=== PATIENT | male | born 1965 | race African-American/Black ===

== ENCOUNTER 2020-03-27 19:18 | Emergency (ER) | payer BC, OTHER ==
--- OUTSIDE RECORDS SUMMARY | 2020-03-27 19:21 | XMS REPORT | Summary of Care ---
:1965 Author Organization [facility] - [facility] Address [address] [place] [address] Care Team Providers Name Role Phone Torres Peres MD Primary Care Provider Reason for Visit Reason Comments Rx Concern/Question Encounter Details Date Type Department Care Team Description 03/06/2020 Telephone [facility] Systems Integration Family Corona Peres Rx Conc john/Question Medicine - Sebastián Macdonald MD [address] [place] [address] [place] [address] [place], [place] [phone] Allergies No Known Allergiesdocumented as of this encounter (statuses as of 03/06/2020) Medications Medication Sig Dispensed Refills Start Date End Date Status aspirin 81 mg chewable Take 81 mg by 0 Active tablet mouth daily. topiramate 100 mg Take 1 tablet 180 tablet 4 12/02/2019 Active tabletIndications: by mouth 2 Migraine without aura and (two) times without status daily. migrainosus, not intractable atorvastatin 40 mg Take 1 tablet 90 tablet 4 03/02/2020 Active tabletIndications: by mouth at Hypercholesterolemia bedtime. ALPRAZolam (XANAX) 1 mg Take 1 tablet 30 tablet 0 03/02/2020 Active tabletIndications: Anxiety by mouth 2 (two) times daily as needed (anxiety). tamsulosin (FLOMAX) 0.4 mg Take 1 180 capsule 4 03/02/2020 Active 24 hr capsuleIndications: capsule by Benign prostatic mouth 2 (two) hyperplasia with weak times daily. urinary stream documented as of this encounter (statuses as of 03/06/2020) Active Problems Not on filedocumented as of this encounter (statuses as of 03/06/2020) Social History Tobacco Use Types Packs/Day Years Used Date Current Every Day Smoker Cigarettes 1 Smokeless Tobacco: Never Used Alcohol Use Drinks/Week oz/Week Comments Not Currently Sex Assigned at Date Recorded Not on file Job Start Date Occupation Industry Not on file Not on file Not on file Travel History Travel Start Travel End No recent travel history available. documented as of this encounter Last Filed Vital Signs Not on filedocumented in this encounter Plan of Treatment Health Maintenance Due Date Last Done Comments HEPATITIS C (HCV) SCREEN 1965 PNEUMOCOCCAL 0-64 YEARS COMBINED SERIES (1 of - 1970 PPSV23) DTaP,Tdap,and Td Vaccines (1 - Tdap) 1975 COLONOSCOPY 2014 Zoster Recombinant Vaccine (SHINGRIX) (1 of 2) 2014 INFLUENZA VACCINE (#1) 2019 LUNG CANCER SCREEN: Recommended for age 55-80 with 30 + 09/06/20 19 pack year history documented as of this encounter Results Not on filedocumented in this encounter Insurance Payer Benefit Plan / Subscriber ID Effective Dates Phone Addre ss Type Group [employer] OF [employer] [id number] 2019-Kaden [phone] [address] [facility] 7 [id number] [place] [address] documented as of this encounter
--- OUTSIDE RECORDS SUMMARY | 2020-03-27 19:21 | XMS REPORT | Summary of Care ---
:1965 Author Organization [facility] - [facility] Address [address] [place] [address] Care Team Providers Name Role Phone Torres Peres MD Primary Care Provider Reason for Visit Reason Comments Rx Concern/Question Encounter Details Date Type Department Care Team Description 03/05/2020 Telephone [facility] Foody Family Corona Peres Rx Conc john/Question Medicine - Sebastián Macdonald MD [address] [place] [address] [place] [address] [place], [place] [phone] Allergies No Known Allergiesdocumented as of this [...] ss Type Group [employer] [id number] 2019-Kaden [phone] [address] [facility] [id number] [place] [address] documented as of this encounter
--- OUTSIDE RECORDS SUMMARY | 2020-03-27 19:21 | XMS REPORT | Summary of Care ---
:1965 Author Organization [facility] - [facility] Address [address] [place] [address] Care Team Providers Name Role Phone Torres Peres MD Primary Care Provider Reason for Visit Reason Comments Refill Request Anxiety Encounter Details Date Type Department Care Team Description 03/02/2020 Telemedicine Visit [facility] Corona Peres Anxiety (Primary Dx); Pediatric and Adult MD Torres Hypercholesterolemia; Primary Care- [address] Benign prostatic hyperplasia with weak u rinary stream [place], [place] [address] [phone] , [address] [place], [place] [phone] [address] (Fax) [phone] Allergies No Known Allergiesdocumented as of this encounter (statuses as of 03/02/2020) Medications Medication Sig Dispensed Refills Start End Status Date Date aspirin 81 mg chewable Take 81 mg 0 Active tablet by mouth daily. topiramate 100 mg Take 1 180 tablet 4 12/02/19 A ctive tabletIndications: tablet by 20 Migraine without aura mouth 2 and without status (two) times migrainosus, not daily. intractable atorvastatin 40 mg Take 1 90 tablet 4 03/02/20 A ctive tabletIndications: tablet by 20 Hypercholesterolemia mouth at bedtime. ALPRAZolam (XANAX) 1 mg Take 1 30 tablet 0 03/02/20 Active tabletIndications: tablet by 20 Anxiety mouth 2 (two) times daily as needed (anxiety). tamsulosin (FLOMAX) 0.4 Take 1 180 capsule 4 03/02/20 Active mg 24 hr capsule by 20 capsuleIndications: mouth 2 Benign prostatic (two) times hyperplasia with weak daily. urinary stream HYDROcodone-acetaminophe Take 1 Tab 0 /0 3/2 Discontinued n (NORCO) 10-325 mg by mouth 020 tablet every 6 (six) hours as needed. ALPRAZolam (XANAX) 1 mg Take 1 mg 0 Discontinued tablet by mouth 3 020 (three) times daily. carisoprodol (SOMA) 350 Take 350 mg 0 04/0 3/2 Discontinued mg tablet by mouth 3 020 (three) times daily. tamsulosin (FLOMAX) 0.4 Take 1 90 capsule 4 12/02/1903/02 Discontinued mg 24 hr capsule by 20 020 (Reorder) capsuleIndications: mouth Benign prostatic daily. hyperplasia with weak urinary stream atorvastatin 40 mg Take 1 90 tablet 4 12/02/19 D iscontinued tabletIndications: tablet by 20 020 ( Reorder) Hypercholesterolemia mouth at bedtime. ibuprofen 800 mg Take 1 270 tablet 4 12/02/19 Di scontinued tabletIndications: Low tablet by 20 020 back pain of over 3 mouth 3 months duration (three) times daily with meals. tamsulosin (FLOMAX) 0.4 Take 1 90 capsule 4 03/02/2003/02 Discontinued mg 24 hr capsule by 20 020 (Reorder) capsuleIndications: mouth Benign prostatic daily. hyperplasia with weak urinary stream documented as of this encounter (statuses as of 03/02/2020) Active Problems Not on filedocumented as of this encounter (statuses as of 03/02/2020) Social History Tobacco Use Types Packs/Day Years [...] Signs Not on filedocumented in this encounter Progress Notes Corona Peres MD - 03/02/2020 2:00 PM CDT TELEHEALTH NOTE Verbal consent obtained from Patient: Benigno Crespo for telehealth services provided below. Communication with patient was conducted via Telephone. Location of Patient: Workplace Location of Provider: Office Date of Service: 03/02/2020 Chief Complaint: refills HPI: BPH: patient is unable to urinate well. Difficult to initiate and poor stream, did better on BID tamsulosin. Anxiety Presents for follow-up visit. Symptoms include excessive worry, insomnia and nervous/anxious behavior. Symptoms occur constantly. Compliance with medications: patient did not see pain management and is not taking pain meds or muscle relaxers; he is very anxoius and not sleeping. Past Medical History: Diagnosis Date BPH with urinary obstruction CAD (coronary artery disease) Hyperlipidemia Hypertension Migraine No Known Allergies Family History Problem Relation Age of Onset No Significant Medical Problems Mother MEDICATIONS: Current Outpatient Medications Medication Sig Dispense Refill aspirin 81 mg chewable tablet Take 81 mg by mouth daily. atorvastatin 40 mg tablet Take 1 tablet by mouth at bedtime. 90 tablet 4 carisoprodol (SOMA) 350 mg tablet Take 350 mg by mouth 3 (three) times daily. ibuprofen 800 mg tablet Take 1 tablet by mouth 3 (three) times daily with meals. 270 tablet 4 tamsulosin (FLOMAX) 0.4 mg 24 hr capsule Take 1 capsule by mouth daily. 90 capsule 4 topiramate 100 mg tablet Take 1 tablet by mouth 2 (two) times daily. 180 tablet 4 ALPRAZolam (XANAX) 1 mg tablet Take 1 mg by mouth 3 (three) times daily. HYDROcodone-acetaminophen (NORCO) 10-325 mg tablet Take 1 Tab by mouth every 6 (six) hours as needed. No current facility-administered medications for this visit. ROS Review of Systems Psychiatric/Behavioral: The patient is nervous/anxious and has insomnia. TELEHEALTH EXAM Patient is alert and communicative on the phone with no distress noted. ASSESSMENT/ PLAN 1. Anxiety ALPRAZolam (XANAX) 1 mg tablet 2. Hypercholesterolemia atorvastatin 40 mg tablet 3. Benign prostatic hyperplasia with weak urinary stream tamsulosin (FLOMAX) 0.4 mg 24 hr capsule Increase tamsulosin to bid After visit summary (AVS ) documentation will be available through [employer] for this encounter. A total of 15 minutes was spent on the Telephone with the patient. Corona Peres MD documented in this encounter Plan of Treatment Health Maintenance Due Date Last Done Comments HEPATITIS C (HCV) SCREEN 1965 PNEUMOCOCCAL 0-64 YEARS COMBINED SERIES (1 of 1 - 1970 PPSV23) DTaP,Tdap,and Td Vaccines (1 - Tdap) 1975 COLONOSCOPY 2014 Zoster Recombinant Vaccine (SHINGRIX) (1 of 2) 2014 INFLUENZA VACCINE (#1) 2019 LUNG CANCER SCREEN: Recommended for age 55-80 with 30 + 09/06/20 19 pack year history documented as of this encounter Results Not on filedocumented in this encounter Visit Diagnoses Diagnosis Anxiety - Primary Anxiety state, unspecified Hypercholesterolemia Pure hypercholesterolemia Benign prostatic hyperplasia with weak u rinary stream documented in this encounter Insurance Payer Benefit Plan / Subscriber ID Effective Dates Phone Addre ss Type Group [employer] [id number] 2019-Kaden [phone] [id number] [place] [address] [id number] [place] [address] documented as of this encounter
--- OUTSIDE RECORDS SUMMARY | 2020-03-27 19:21 | XMS REPORT | Summary of Care ---
:1965 Author Organization [facility] - [facility] Address [address] [place] [address] Care Team Providers Name Role Phone Torres Peres MD Primary Care Provider Reason for Referral (Routine) Status Reason Specialty Diagnoses / Referred By Referred To Procedures Contact Contact New Request Location Diagnoses Benign prostatic hyperplasia with weak urinary stream Corona Peres, Preference Procedures CONSULT/REFERRAL UROLOGY MD Torres [address] [facility] [address] [place] [address] Phone: Fax: Reason for Visit Reason Comments Referral/consult Encounter Details Date Type Department Care Team Description 01/17/2020 Telephone [facility] Family Corona Peres, Referral/consult Medicine - Sebastián AMIN [address] [place] [address] Nancie can [address] [place] [address] [place] [address] [place], [place] [phone] Allergies No Known Allergiesdocumented as of this encounter (statuses as of 01/18/2020) Medications Medication Sig Dispensed Refills Start Date End Date Status HYDROcodone-acetaminophen Take 1 Tab by 0 Active (NORCO) 10-325 mg tablet mouth every 6 (six) hours as needed. ALPRAZolam (XANAX) 1 mg Take 1 mg by 0 Active tablet mouth 3 (three) times daily. carisoprodol (SOMA) 350 mg Take 350 mg 0 Active tablet by mouth 3 (three) times daily. aspirin 81 mg chewable Take 81 mg by 0 Active tablet mouth daily. topiramate 100 mg Take 1 tablet 180 tablet 4 12/02/2019 Active tabletIndications: by mouth 2 Migraine without aura and (two) times without status daily. migrainosus, not intractable tamsulosin (FLOMAX) 0.4 mg Take 1 90 capsule 4 12/02/2019 Active 24 hr capsuleIndications: capsule by Benign prostatic mouth daily. hyperplasia with weak urinary stream atorvastatin 40 mg Take 1 tablet 90 tablet 4 12/02/2019 Active tabletIndications: by mouth at Hypercholesterolemia bedtime. ibuprofen 800 mg Take 1 tablet 270 tablet 4 12/02/2019 Active tabletIndications: Low by mouth 3 back pain of over 3 months (three) times duration daily with meals. documented as of this encounter (statuses as of 01/18/2020) Active Problems Not on filedocumented as of this encounter (statuses as of 01/18/2020) Social History Tobacco Use Types Packs/Day Years [...] filedocumented in this encounter Plan of Treatment Date Type Specialty Care Team Description 03/02/2020 Office Visit Family Medicine Corona Peres MD [address] [place] [address] [phone] Health Maintenance Due Date Last Done Comments [...] filedocumented in this encounter Visit Diagnoses Diagnosis Benign prostatic hyperplasia with weak u rinary stream - Primary documented in this encounter Insurance Payer Benefit Plan / Subscriber ID Effective Dates Phone Addre ss Type Group [employer] [id number] 2019-Kaden [phone] [address] [facility] [id number] [place] [address] documented as of this encounter
--- OUTSIDE RECORDS SUMMARY | 2020-03-27 19:21 | XMS REPORT | Summary of Care ---
:1965 Author Organization [facility] - [facility] Address [address] [place] [address] Care Team Providers Name Role Phone Torres Peres MD Primary Care Provider Reason for Visit Reason Comments Referral/consult Urology Encounter Details Date Type Department Care Team Description 01/23/2020 Telephone [facility] Family Corona Peres l/consult Medicine - Sebastián Macdonald MD (Urology ) [address] [place], [place] [address] [phone] Allergies No Known Allergiesdocumented as of this encounter (statuses as of 01/30/2020) Medications Medication Sig Dispensed Refills Start Date [...] as of this encounter (statuses as of 01/30/2020) Active Problems Not on filedocumented as of this encounter (statuses as of 01/30/2020) Social History Tobacco Use Types Packs/Day Years [...] Office Visit Family Medicine Corona Peres MD [address] [place] [address] [phone] Health Maintenance Due Date Last Done [...] ss Type Group [employer] [id number] 2019-Kaden [phone] [address] [facility] [address] [id number] [place] [address] documented as of this encounter
--- OUTSIDE RECORDS SUMMARY | 2020-03-27 19:21 | XMS REPORT ---
:[address] [facility] t Address [address] [place] [address] Dr. Granados [address] [place] [address] Care Team Providers Name Role Phone Unavailable Unavailable Unavailable Problems This patient has no known problems. Allergies, Adverse Reactions, Alerts This patient has no known allergies or adverse reactions. Medications This patient has no known medications.
[2020-03-27] MEDS ORDERED: MORPHINE 2 MG/ML SYR ONE (21:04)
[2020-03-27] MEDS ORDERED: NA CHLORIDE 0.9% 1,000 ML ONE (21:04)
[2020-03-27] MEDS ORDERED: ONDANSETRON 4 MG/2 ML VIAL ONE (21:04)
[2020-03-27 21:19] LABS: Basophils % 0.5 % (0-1.3); Hematocrit 41.8 % (39.6-49.0); Lymphocytes % 32.2 % (15.3-44.8); MPV 8.8 fL (7.6-11.3); RBC Red Blood Cell Count 4.43 M/uL (4.33-5.43)
--- NOTE | 2020-03-27 21:30 | EDPHYS ---
Physician Documentation [facility] Name: Benigno Crespo Age: 54 yrs Sex: Male : 1965 Arrival Date: 03/27/2020 Time: 19:21 Bed 19 Private MD: ED Physician Richard Bentley HPI: 03/27 20:43 This 54 yrs old Black Male presents to ER via Ambulatory with complaints of Rectal aileen Bleeding. 20:43 The patient presents to the emergency department with bleeding from the rectum/anus, aileen pain in the rectal area, that is moderate. Onset: The symptoms/episode began/occurred 2 day(s) ago. Context: the patient has no known special context relating to the rectal area complaint(s). Modifying factors: The symptoms are alleviated by remaining still, The symptoms are aggravated by bowel movement, movement, sitting position. Associate signs and symptoms: The patient has no apparent associated signs or symptoms. The patient has experienced similar episodes in the past, a few times. 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 - Social history:: Smoking status: Patient reports the use of cigarette tobacco products, smokes one-half pack cigarettes per day. ROS: 20:44 Constitutional: Negative for fever, chills, and weight loss, Eyes: Negative for injury, aileen pain, redness, and discharge, ENT: Negative for injury, pain, and discharge, Neck: Negative for injury, pain, and swelling, Cardiovascular: Negative for chest pain, palpitations, and edema, Respiratory: Negative for shortness of breath, cough, wheezing, and pleuritic chest pain, Back: Negative for injury and pain, : Negative for injury, bleeding, discharge, and swelling, MS/Extremity: Negative for injury and deformity, Skin: Negative for injury, rash, and discoloration, Neuro: Negative for headache, weakness, numbness, tingling, and seizure, Psych: Negative for depression, anxiety, suicide ideation, homicidal ideation, and hallucinations, Allergy/Immunology: Negative for hives, rash, and allergies, Endocrine: Negative for neck swelling, polydipsia, polyuria, polyphagia, and marked weight changes, Hematologic/Lymphatic: Negative for swollen nodes, abnormal bleeding, and unusual bruising. 20:44 Abdomen/GI: Positive for rectal pain, rectal bleeding, HEMORRHOIDS noted , extensive edema. Exam: 20:44 Constitutional: This is a well developed, well nourished patient who is awake, alert, aileen and in no acute distress. Head/Face: Normocephalic, atraumatic. Eyes: Pupils equal round and reactive to light, extra-ocular motions intact. Lids and lashes normal. Conjunctiva and sclera are non-icteric and not injected. Cornea within normal limits. Periorbital areas with no swelling, redness, or edema. ENT: Nares patent. No nasal discharge, no septal abnormalities noted. Tympanic membranes are normal and external auditory canals are clear. Oropharynx with no redness, swelling, or masses, exudates, or evidence of obstruction, uvula midline. Mucous membranes moist. Neck: Trachea midline, no thyromegaly or masses palpated, and no cervical lymphadenopathy. Supple, full range of motion without nuchal rigidity, or vertebral point tenderness. No Meningismus. Chest/axilla: Normal chest wall appearance and motion. Nontender with no deformity. No lesions are appreciated. Cardiovascular: Regular rate and rhythm with a normal S1 and S2. No gallops, murmurs, or rubs. Normal PMI, no JVD. No pulse deficits. Respiratory: Lungs have equal breath sounds bilaterally, clear to auscultation and percussion. No rales, rhonchi or wheezes noted. No increased work of breathing, no retractions or nasal flaring. Back: No spinal tenderness. No costovertebral tenderness. Full range of motion. Skin: Warm, dry with normal turgor. Normal color with no rashes, no lesions, and no evidence of cellulitis. MS/ Extremity: Pulses equal, no cyanosis. Neurovascular intact. Full, normal range of motion. Neuro: Awake and alert, GCS 15, oriented to person, place, time, and situation. Cranial nerves II-XII grossly intact. Motor strength 5/5 in all extremities. Sensory grossly intact. Cerebellar exam normal. Normal gait. Psych: Awake, alert, with orientation to person, place and time. Behavior, mood, and affect are within normal limits. 20:44 Abdomen/GI: Inspection: abdomen appears normal, Bowel sounds: normal, Palpation: nontender, Rectal exam: hemorrhoid(s), external, with associated bleeding, with inflammation, with pain, mass, is not appreciated, swelling, that is moderate, tenderness, that is moderate. Vital Signs: 19:41 BP 119 / 88; Pulse 109; Resp 18; Temp 99.2(O); Pulse Ox 99% on R/A; Weight 79.38 kg lp1 (R); Height 5 ft. 8 in. (172.72 cm); Pain 0/10; 20:50 BP 113 / 86; Pulse 67; Resp 18 S; Pulse Ox 100% on R/A; ca1 21:53 BP 101 / 68; Pulse 77; Resp 18 S; Pulse Ox 100% on R/A; ca1 19:41 Body Mass Index 26.61 (79.38 kg, 172.72 cm) lp1 MDM: 20:10 Patient medically screened. [facility] 20:46 Data reviewed: vital signs, nurses notes, lab test result(s), radiologic studies, plain aileen films. 20:46 Differential diagnosis: hemorrhoids, rectal prolapse possible. Data interpreted: [facility] satellite project site monitor: not applicable for this patient encounter. Test interpretation: by ED physician or midlevel provider: plain radiologic studies. 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 20:48 Physician consultation: Brayan Larose MD was called at 08:50, was contacted at 08:50, [facility] regarding consult, and will see patient in ED. 21:26 ED course: dr larose thoughts are partial mucisal prolapse.in ed to see. [facility] 21:35 Test interpretation: by ED physician or midlevel provider: labs, normal. Medication [facility] response: morphine partially relieved the patient's pain. ED course: pt explained process and follow up plan, will see dr larose in his office tomorrow. 03/27 20:43 Order name: CBC with Diff; Complete Time: 21:27 [facility] 03/27 20:43 Order name: Comprehensive Metabolic Panel [facility] 03/27 20:46 Order name: Abdomen 1 View (KUB) XRAY [facility] 03/27 20:43 Order name: Misc. Order: WARM SITZ BATH NOW; Complete Time: 21:39 aileen Administered Medications: 21:02 Drug: NS 0.9% 1000 ml Route: IV; Rate: 1 bolus; Site: right antecubital; ca1 21:52 Follow up: Response: No adverse reaction; IV Status: Completed infusion ca1 21:03 Drug: Zofran (Ondansetron) 4 mg Route: IVP; Site: right antecubital; ca1 21:52 Follow up: Response: No adverse reaction; Nausea is decreased ca1 21:07 Drug: morphine 2 mg {Note: RASS - 0.} Route: IVP; Site: right antecubital; ca1 21:52 Follow up: Response: No adverse reaction; Pain is decreased; RASS: Alert and Calm (0) ca1 21:40 Drug: Cipro 500 mg Route: PO; ca1 21:52 Follow up: Response: No adverse reaction ca1 21:41 Drug: Flagyl 500 mg Route: PO; ca1 21:52 Follow up: Response: No adverse reaction ca1 Disposition: 03/27/20 21:29 Discharged to Home. Impression: Rectal prolapse - partial mucosal. - Condition is Stable. - Discharge Instructions: Rectal Prolapse, Adult. - Prescriptions for Lidocaine Viscous - Apply to affected area 1 application by RECTAL route 3 times per day; 90 milliliter. Proctofoam HC 1- 1 % Rectal foam - apply 1 application by TOPICAL route 3 times per day; 30 Pack. Colace 100 mg Oral Tablet - take 1 tablet by ORAL route every 12 hours; 14 tablet. Flagyl 500 mg Oral Tablet - take 1 tablet by ORAL route every 8 hours for 7 days; 21 tablet. Cipro 500 mg Oral Tablet - take 1 tablet by ORAL route every 12 hours for 7 days; 14 tablet. - Medication Reconciliation Form, Thank You Letter, Antibiotic Education, Prescription Opioid Use, Work release form form. - Follow up: Brayan Larose MD; When: Tomorrow; Reason: Recheck today's complaints, Continuance of care, Re-evaluation by your physician. - Problem is new. - Symptoms have improved. Signatures: Dispatcher [employer] EDRichard William MD MD cha Pena, Laura RN RN lp1 Agueda Sandhu RN RN ca1 Corrections: (The following items were deleted from the chart) 21:58 21:29 03/27/2020 21:29 Discharged to Home. Impression: Rectal prolapse - partial ca1 mucosal. Condition is Stable. Forms are Medication Reconciliation Form, Thank You Letter, Antibiotic Education, Prescription Opioid Use. Follow up: Brayan Larose; When: Tomorrow; Reason: Recheck today's complaints, Continuance of care, Re-evaluation by your physician. Problem is new. Symptoms have improved. aileen
--- NOTE | 2020-03-27 21:30 | ER ---
Nurse's Notes [facility] Name: Benigno Crespo Age: 54 yrs Sex: Male : 1965 Arrival Date: 03/27/2020 Time: 19:21 Bed 19 Private MD: Diagnosis: Rectal prolapse-partial mucosal Presentation: 03/27 19:37 Chief complaint: Patient states: Rectal bleeding, dark in color that has been off and lp1 on all day today; States diarrhea today as well, has "really bad hemorrhoids"; unable to sit comfortably during triage. Coronavirus screen: Proceed with normal triage. Ebola Screen: No symptoms or risks identified at this time. Risk Assessment: Do you want to hurt yourself or someone else? Patient reports no desire to harm self or others. Onset of symptoms was March 27, 2020. 19:37 Method Of Arrival: Ambulatory lp1 19:37 Acuity: JD 3 lp1 20:15 Initial Sepsis Screen: Does the patient meet any 2 criteria? No. Patient's initial ca1 sepsis screen is negative. Does the patient have a suspected source of infection? No. Patient's initial sepsis screen is negative. 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 - Social history:: Smoking status: Patient reports the use of cigarette tobacco products, smokes one-half pack cigarettes per day. Screenin:15 Abuse screen: Denies threats or abuse. Denies injuries from another. Nutritional ca1 screening: No deficits noted. Tuberculosis screening: No symptoms or risk factors identified. Fall Risk IV access (20 points). Assessment: 20:15 General: Appears in no apparent distress. uncomfortable, Behavior is calm, cooperative, ca1 appropriate for age. Pain: Complains of pain in gluteal cleft Pain currently is 5 out of 10 on a pain scale. Pain began this afternoon Is continuous. Neuro: Level of Consciousness is awake, alert, obeys commands, Oriented to person, place, time, situation, Appropriate for age. Cardiovascular: Heart tones S1 S2 present Capillary refill < 3 seconds Patient's skin is warm and dry. Respiratory: Airway is patent Respiratory effort is even, unlabored, Respiratory pattern is regular, symmetrical, Breath sounds are clear bilaterally. GI: Abdomen is flat, non-distended, Bowel sounds present X 4 quads. Abd is soft and non tender X 4 quads. Reports diarrhea, bloody stool, hemorrhoids. : No signs and/or symptoms were reported regarding the genitourinary system. EENT: No signs and/or symptoms were reported regarding the EENT system. Derm: Skin is intact, is healthy with good turgor, Skin is pink, warm \\T\\ dry. Musculoskeletal: Circulation, motion, and sensation intact. Capillary refill < 3 seconds. 21:15 Reassessment: Dr. Alarcon at bedside. ca1 21:15 Reassessment: Patient appears in no apparent distress at this time. Patient and/or ca1 family updated on plan of care and expected duration. Pain level reassessed. Patient is alert, oriented x 3, equal unlabored respirations, skin warm/dry/pink. 21:53 Reassessment: Patient appears in no apparent distress at this time. Patient is alert, ca1 oriented x 3, equal unlabored respirations, skin warm/dry/pink. Vital Signs: 19:41 BP 119 / 88; Pulse 109; Resp 18; Temp 99.2(O); Pulse Ox 99% on R/A; Weight 79.38 kg lp1 (R); Height 5 ft. 8 in. (172.72 cm); Pain 0/10; 20:50 BP 113 / 86; Pulse 67; Resp 18 S; Pulse Ox 100% on R/A; ca1 21:53 BP 101 / 68; Pulse 77; Resp 18 S; Pulse Ox 100% on R/A; ca1 19:41 Body Mass Index 26.61 (79.38 kg, 172.72 cm) lp1 ED Course: 19:21 Patient arrived in ED. ds1 19:39 Triage completed. lp1 19:39 Arm band placed on left wrist. lp1 20:10 Agueda Sandhu RN is Primary Nurse. ca1 20:10 Richard Bentley MD is Attending Physician. aileen 20:15 Patient has correct armband on for positive identification. Placed in gown. Bed in low ca1 position. Call light in reach. Side rails up X2. Pulse ox on. NIBP on. Warm blanket given. 21:02 No provider procedures requiring assistance completed. Initial lab(s) drawn, by me, ca1 sent to lab. Inserted saline lock: 20 gauge in right antecubital area, using aseptic technique. Blood collected. 21:29 Brayan Alarcon MD is Referral Physician. [facility] 21:33 Abdomen 1 View (KUB) XRAY In Process Unspecified. EDMS 21:57 IV discontinued, intact, bleeding controlled, No redness/swelling at site. Pressure ca1 dressing applied. Administered Medications: 21:02 Drug: NS 0.9% 1000 ml Route: IV; Rate: 1 bolus; Site: right antecubital; ca1 21:52 Follow up: Response: No adverse reaction; IV Status: Completed infusion ca1 21:03 Drug: Zofran (Ondansetron) 4 mg Route: IVP; Site: right antecubital; ca1 21:52 Follow up: Response: No adverse reaction; Nausea is decreased ca1 21:07 Drug: morphine 2 mg {Note: RASS - 0.} Route: IVP; Site: right antecubital; ca1 21:52 Follow up: Response: No adverse reaction; Pain is decreased; RASS: Alert and Calm (0) ca1 21:40 Drug: Cipro 500 mg Route: PO; ca1 21:52 Follow up: Response: No adverse reaction ca1 21:41 Drug: Flagyl 500 mg Route: PO; ca1 21:52 Follow up: Response: No adverse reaction ca1 Outcome: 21:29 Discharge ordered by . [facility] 21:57 Discharged to home ambulatory. ca1 21:57 Condition: stable 21:57 Discharge instructions given to patient, Instructed on discharge instructions, follow up and referral plans. medication usage, Demonstrated understanding of instructions, follow-up care, medications, Prescriptions given X x5 21:58 Patient left the ED. ca1 Signatures: Dispatcher [employer] EDMS Richard Bentley MD MD cha Sanford, Demi ds1 Kayli Chacon, RN RN lp1 Agueda Sandhu RN RN ca1
[2020-03-27 21:31] LABS: Albumin 3.8 g/dL (3.4-5.0); Bilirubin Total 0.2 mg/dL (0.2-1.0); Potassium 3.5 mmol/L (3.5-5.1); Protein, Total 7.3 g/dL (6.4-8.2)
[2020-03-27] MEDS ORDERED: metroNIDAZOLE 500 MG TABLET ONE (21:48)
[2020-03-27] MEDS ORDERED: CIPROFLOXACIN HCL 500 MG TAB ONE (21:48)
--- NOTE | 2020-03-27 23:33 | CON ---
Date of Consultation: 03/27/2020 Brief History Of Present Illness: Patient is a 54-year-old black male who is a local [place] [employer] by [employer], who reports chronic constipation because of his work history where he often will hold his bowel m ovements until late in the day, goes home, and has a very difficult time passing stool. He noted yocasta t earlier today he started having progressive rapid diarrhea associated with some abdominal pain and he felt a large bulge pop out of his anal area. He was seen in the ER and concern for large hemorrho ids was noted at this point, as such, I was consulted to see the patient. Past Medical History: Significant for hypertension, hyperlipidemia and migraines. Past Surgical History: Intestinal blockage as a baby, knee surgery. Allergies: NO KNOWN DRUG ALLERGIES. Home Medications: Flomax, topiramate, aspirin and atorvastatin. Social History: He smokes cigarettes approximately half pack per day. Denies alcohol or recreationa l drug use. Review of Systems: 10-point review of systems other than HPI denies. Physical Examination: Vital Signs: At the time of examination, blood pressure 119/88, pulse of 108, respiratory rate 18, t emperature 99.2. General: He is awake, alert, and oriented. Psychiatric: He is appropriate and conversive. HEENT: Normocephalic. Sclerae anicteric. Mucous membranes are moist. Oropharynx clear. Neck: Supple. No JVD. Chest: Symmetric excursion. Cardiovascular: Regular rate and rhythm. Pulmonary: Clear to auscultation bilaterally. Abdomen: Soft, nontender, nondistended. No rebound. No guarding. No focal peritonitis. Focused e xamination of the rectal area shows a rectal mucosal prolapse partial, straining produces this worsen ing of symptomatology and there are some edematous changes to the anorectal mucosa. It is only. Part ially reducible but recurs rather quickly. As such, this is consistent with a rectal prolapse at thi s point with partial mucosal exposure. Laboratory Data: He had a laboratory exam, his white blood cell count is 6.3, hemoglobin is 14.0, he matocrit of 41.8, platelet count is 214. His chemistry was sodium , potassium 3.5, chlorid e 116, carbon dioxide 24, BUN 13, creatinine 1.04, glucose 106, total bilirubin 0.2, direct component was not measured. AST 11, ALT 32, alkaline phosphatase 51. He had no imaging performed. KUB is performed, does not appear to show any acute pathologic findings. Assessment And Plan: This is a 54-year-old male with a partial rectal prolapse. 1.Sitz baths. 2.Proctofoam-HC. 3.Patient will be placed on a bowel regimen. A referral for a colorectal surgeon is recommended. I have explained the risks, benefits, alternatives of the above stated plan. Patient agrees to as indic ated. Thank you for this interesting consult. JADA/JO Voice ID: [id number] Report ID: [id number]
--- NOTE | 2020-03-28 08:30 | RAD REPORT ---
EXAM DESCRIPTION: RAD - Abdomen 1 View (KUB) - 03/27/2020 9:33 pm CLINICAL HISTORY: ABD PAIN Pain COMPARISON: No comparisons FINDINGS: The bowel gas pattern is non-obstructive. No evidence of free air or pneumatosis. Tiny non specific calcification seen to the left of L3 left transverse process.
== END 2020-03-27 21:58 | disposition home or self-care (01) ==
LOC: ER 19:18
DX: K62.3 Rectal prolapse (principal); E78.5 Hyperlipidemia, unspecified; F17.210 Nicotine dependence, cigarettes, uncomplicated
CPT/HCPCS: 96361; 85025; 36415; 80053; 74018; 96375; 96374; 99284; J2270; J7030; J2405

== ENCOUNTER 2023-04-14 09:27 | Inpatient (IN) | payer OTHER ==
--- OUTSIDE RECORDS SUMMARY | 2023-04-14 09:34 | XMS REPORT | Continuity of Care Document ---
:[address] [facility] t Address [address] [place] [address] Care Team Providers Name Role Phone Catracho Manriquez MD Primary Care Physician [phone] MICKY ENGEL Attending Clinician Unavailable JADEN JOYA Attending Clinician Unavailable RONALDO KONG Attending Clinician Unavailable BURTON ENAMORADO Attending Clinician Unavailable KARUNA SANFORD Attending Clinician Unavailable Karuna Sanford MD Attending Clinician OMAIRA LWEIS Attending Clinician Unavailable LAB90 Attending Clinician Unavailable Seng Espinoza MD Attending Clinician LLOYD KWAN Attending Clinician Unavailable SENG ESPINOZA Attending Clinician Unavailable Payers Payer Name Policy Type Policy Number Effective Date Expiration Date S luciana [facility] 9 [id number] 2023 BRONZE: HMO ON 00:00:00 STANDARD MEDICARE PART A \T\ [id number] 2008 B 00:00:00 [employer] [id number] 2023 OUT OF NETWORK 00:00:00 Problems Condition Condition Condition Status Onset Resolution Last Treating Co mments Source Name Details Category Date Date Treatment Clinician Date CAD CAD Disease Active Ewelina (coronary (coronary 03-31 Seyb old artery artery 00:00: - disease) disease) 00 Orthodontic Assistant a l Family Family Disease Active Ewelina history of history of 03-31 Se ybold prostate prostate 00:00: - cancer in cancer in 00 Exte rna father father l Elevated Elevated Disease Active Awaisse y PSA PSA 5 Seybold 00:00: - 00 Externa l Prediabete Prediabete Disease Active K elsey s s 423 Seybold 00:00: - 00 Externa l BPH BPH Disease Active Ewelina (benign (benign 20 Seybold prostatic prostatic 00:00: - hyperplasi hyperplasi 00 Ex terna a) a) l Migraine Migraine Disease Active Danie y 4-20 Seybold 00:00: - 00 Externa l Back pain Back pain Disease Active wAais sey 4-19 Seybold 00:00: - 00 Externa l Benign Benign Disease Active Methodi prostatic prostatic 05-30 st hyperplasi hyperplasi 00:00: Ho spita a without a without 00 l lower lower urinary urinary tract tract symptoms symptoms Migraine Migraine Disease Active Metho di 05-30 00:00: Hospita 00 l Bradycardi Bradycardi Disease Active M ethodi a a 05-30 00:00: Hospita 00 l Metabolic Metabolic Disease Active Met hodi acidosis acidosis 05-30 00:00: Hospita 00 l Nausea and Nausea and Disease Active M ethodi vomiting vomiting 05-30 00:00: Hospita 00 l Postural Postural Disease Active Metho di dizziness dizziness 05-29 st 00:00: Hospita 00 l Chest pain Chest pain Disease Active 2016-11 M ethodi 12-26 st 00:00: Hospita 00 l Allergies, Adverse Reactions, Alerts Allergy Allergy Status Severity Reaction(s) Onset Inactive Treating Comm ents Source Name Type Date Date Clinician SUMATRIP DRUG Active Dizziness Unive rs WOOD INGREDI 5-14 ity of SUCCINAT 00:00: [place] E 00 [facility] Sumatrip Propensi Active Shortness of Univers wood ty to Breath 5-14 ity of Succinat adverse 00:00: [place] e reaction 00 Medical s Branch NO KNOWN Drug Active Univers ALLERGIE Class ity of S [facility] NO KNOWN Allergy Active [facility] Social History Social Habit Start Date Stop Date Quantity Comments Source History of tobacco Cigarette Smoker Ewelina Boyd - use External History SDNY [facility] Alcohol Std Drinks Medica l Center History SDOH [facility] Alcohol Binge Medical [facility] Gender identity [facility] Sexual orientation [facility] Exposure to 2023-04-02 2023-04-12 Not sure University of SARS-CoV-2 (event) 00:00:00 20:26:00 [facility] Cigarette 2023-03-31 2023-03-31 Ewelina Boyd - pack-years 00:00:00 00:00:00 External Education 2023-03-31 2023-03-31 13 Ewelina Boyd - 00:00:00 00:00:00 External Tobacco Comment 2023-03-31 2023-03-31 Quit tobacco Ewelina Boyd - 00:00:00 00:00:00 recently. No vaping Exter nal to help quit smoking Cigarettes smoked 2020-03-28 2020-03-[address] [facility] current (pack per 00:00:00 00:00:00 Medical Center day) - Reported History SDOH 2020-03-28 2020-03-[address] [facility] Alcohol Frequency 00:00:00 00:00:00 [facility] Center Tobacco use and 2019-12-02 2019-12-02 Smokeless tobacco Un iversity of exposure 00:00:00 00:00:00 non-user [facility] History of Social 2019-07-18 2019-07-[address] function 00:00:00 00:00:00 Hospital Alcohol intake 2019-05-30 2019-05-30 Current drinker of Me thodist 00:00:00 00:00:00 alcohol (finding) Hospita l Alcohol Comment 2017-10-26 2017-10-[address] 00:00:00 00:00:00 Hospital Sex Assigned At [birth year] [facility] 00:00:00 00:00:00 Hospital Smoking Status Start Date Stop Date Source Ex-smoker 2023-03-31 00:00:00 2023-03-31 00:00:00 Ewelina Reina baljitbold - External Smokes tobacco daily 2019-12-02 00:00:00 [facility] Medications Ordered Filled Start Stop Current Ordering Indication Dosage Frequency Signature Comments Components Source Medication Medication Date Date Medication? Clinician (SIG) Name Name iopamidol 2022- No [id number] 75mL 75 mL, U nivers (ISOVUE 5-15 05-15 Intravenou ity o f 370-500 mL) 04:00: 03:13 s, ONCE, 1 [place] injection 00 :00 dose, On Medica l 75 mL [facility] 04/12/23 at 2300, Routine Metformin 2022- No [id number] 500mg Take 1 Ewelina HCl 500 MG -21 04-02 tablet Seybol d oral Tablet 00:00: 00:00 (500 mg - 00 :00 total) by Externa mouth in l the morning and 1 tablet (500 mg total) in the evening. Take with meals. Atorvastati 2022- No 40mg Take 1 Awais sey n Calcium 4-20 04-20 tablet (40 Sey bold (Lipitor) 10:03: 00:00 mg total) - 40 MG oral 44 :00 by mouth Exter na Tablet daily l Tamsulosin 2022- No .4mg Take 1 Marina ey HCl 0.4 MG 4-20 04-20 capsule Seybo ld oral 10:03: 00:00 (0.4 mg - Capsule 44 :00 total) by Externa mouth l every night at bedtime Topiramate 2022- No 100mg Take 1 Awais sey 100 MG oral 4-20 04-20 tablet Seybo ld Tablet 09:51: 00:00 (100 mg - 50 :00 total) by Externa mouth 2 l times daily BUPROPION 2022- No 150mg Take 1 Marina ey HCL SR 150 4-20 04-20 tablet Seybol d MG OR TB12 09:47: 00:00 (150 mg - 23 :00 total) by Externa mouth 2 l times daily Topiramate Yes [id number] 100mg Take 1 Ewelina 100 MG oral 4-20 tablet Seybol d Tablet 00:00: (100 mg - 00 total) by Externa mouth 2 l times daily Atorvastati 2022-0 Yes [id number] 40mg Take 1 Ewelina n Calcium 4-20 tablet (40 Seyb old (Lipitor) 00:00: mg total) - 40 MG oral 00 by mouth Exter na Tablet nightly l Tamsulosin 2022-0 Yes [id number] .4mg Take 1 Ewelina HCl 0.4 MG 4-20 capsule Seybol d oral 00:00: (0.4 mg - Capsule 00 total) by Externa mouth l every night at bedtime Sumatriptan 2022-0 Yes [id number] Take 1 tab Ewelina Succinate 4-20 at the Seybold 25 MG oral 00:00: onset of - Tablet 00 headaches. Externa May repeat l dose in 2 hours if headache persists. Do not exceed more than 2 doses in 24 hours Topiramate 2022-0 Yes [id number] 100mg Take 1 Ewelina 100 MG oral 4-20 tablet Seybol d Tablet 00:00: (100 mg - 00 total) by Externa mouth 2 l times daily Atorvastati 0 Yes [id number] 40mg Take 1 Ewelina n Calcium 4-20 tablet (40 Seyb old (Lipitor) 00:00: mg total) - 40 MG oral 00 by mouth Exter na Tablet nightly l Tamsulosin 2022-0 Yes [id number] .4mg Take 1 Ewelina HCl 0.4 MG 4-20 capsule Seybol d oral 00:00: (0.4 mg - Capsule 00 total) by Externa mouth l every night at bedtime Sumatriptan 2022-0 Yes [id number] Take 1 tab Ewelina Succinate 4-20 at the Seybold 25 MG oral 00:00: onset of - Tablet 00 headaches. Externa May repeat l dose in 2 hours if headache persists. Do not exceed more than 2 doses in 24 hours ATORVASTATI 2020-0 Yes [id number] TAKE 1 Univers N 40 mg 4-21 TABLET BY ity of tablet 00:00: MOUTH [place] 00 EVERY Medical NIGHT AT Branch BEDTIME ATORVASTATI 2020-0 Yes [id number] TAKE 1 Univers N 40 mg 4-21 TABLET BY ity of tablet 00:00: MOUTH [place] 00 EVERY Medical NIGHT AT Branch BEDTIME ATORVASTATI 2020-0 Yes [id number] TAKE 1 Univers N 40 mg 4-21 TABLET BY ity of tablet 00:00: MOUTH [place] 00 EVERY Medical NIGHT AT Branch BEDTIME ATORVASTATI 2020-0 Yes [id number] TAKE 1 Univers N 40 mg 4-21 TABLET BY ity of tablet 00:00: MOUTH 00 EVERY Medical NIGHT AT Branch BEDTIME ATORVASTATI 0 Yes [id number] TAKE 1 Univers N 40 mg 4-21 TABLET BY ity of tablet 00:00: MOUTH 00 EVERY Medical NIGHT AT Branch BEDTIME TOPIRAMATE 2020-0 Yes [id number] TAKE 1 Univers 100 mg 3-19 TABLET BY ity of tablet 00:00: MOUTH 00 TWICE Medical DAILY Branch TOPIRAMATE 2020-0 Yes [id number] TAKE 1 Univers 100 mg 3-19 TABLET BY ity of tablet 00:00: MOUTH 00 TWICE Medical DAILY Branch TOPIRAMATE 2020-0 Yes [id number] TAKE 1 Univers 100 mg 3-19 TABLET BY ity of tablet 00:00: MOUTH 00 TWICE Medical DAILY Branch TOPIRAMATE 2020-0 Yes [id number] TAKE 1 Univers 100 mg 3-19 TABLET BY ity of tablet 00:00: MOUTH 00 TWICE Medical DAILY Branch TOPIRAMATE 2020-0 Yes [id number] TAKE 1 Univers 100 mg 3-19 TABLET BY ity of tablet 00:00: MOUTH 00 TWICE Medical DAILY Branch ALPRAZolam 2020-0 Yes [id number] 1mg Take 1 U nivers (XANAX) 1 8-31 tablet by ity o f mg tablet 00:00: mouth (two) Medical times Branch daily as needed (anxiety). ALPRAZolam 2020-0 Yes [id number] 1mg Take 1 U nivers (XANAX) 1 8-31 tablet by ity o f mg tablet 00:00: mouth (two) Medical times Branch daily as needed (anxiety). ALPRAZolam 2020-0 Yes [id number] 1mg Take 1 U nivers (XANAX) 1 8-31 tablet by ity o f mg tablet 00:00: mouth 2 (two) Medical times Branch daily as needed (anxiety). ALPRAZolam 2020-0 Yes [id number] 1mg Take 1 U nivers (XANAX) 1 8-31 tablet by ity o f mg tablet 00:00: mouth 2 (two) Medical times Branch daily as needed (anxiety). ALPRAZolam 2020-0 Yes [id number] 1mg Take 1 U nivers (XANAX) 1 8-31 tablet by ity o f mg tablet 00:00: mouth 2 00 (two) Medical times Branch daily as needed (anxiety). ALPRAZolam 2020-0 Yes [id number] 1mg Take 1 U nivers (XANAX) 1 8-31 tablet by ity o f mg tablet 00:00: mouth 2 00 (two) Medical times Branch daily as needed (anxiety). ALPRAZolam 2020-0 Yes [id number] 1mg Take 1 U nivers (XANAX) 1 8-31 tablet by ity o f mg tablet 00:00: mouth 2 00 (two) Medical times Branch daily as needed (anxiety). ALPRAZolam 2020-0 Yes [id number] 1mg Take 1 U nivers (XANAX) 1 8-31 tablet by ity o f mg tablet 00:00: mouth 2 (two) Medical times Branch daily as needed (anxiety). ALPRAZolam 2020-0 Yes [id number] 1mg Take 1 U nivers (XANAX) 1 6-19 tablet by ity o f mg tablet 00:00: mouth 2 (two) Medical times Branch daily as needed (anxiety). ALPRAZolam 2019-0 2020- No [id number] 1mg Take 1 Univers (XANAX) 1 6-19 08-31 tablet by ity of mg tablet 00:00: 00:[place] mouth 2 [place] :[place] (two) Medical times Branch daily as needed (anxiety). ALPRAZolam 2020-0 Yes .5mg Take 0.[address] (XANAX) 0.5 4-29 mg by [facility] MG tablet 16:18: mouth Medical 19 every Center night as needed for Anxiety. atorvastati 2020-0 Yes 40mg QD Take [address] [facility] (LIPITOR) 4-29 by mouth Luke s 40 MG 16:17: daily. Medical tablet 41 Center tamsulosin 2020-0 Yes .4mg QD Take 0.[address] (FLOMAX) 4-29 mg by [facility]ukes 0.4 mg Cap 16:17: mouth Medica l 24 hr 41 daily. Center capsule topiramate 2020-0 Yes 100mg Q.5D Take [address] (TOPAMAX) 4-29 mg by [facility] 100 MG 16:17: mouth 2 Medical tablet 41 (two) Center times daily. HYDROcodone 2019- 2020- No 1{tbl} Take 1 Tab Univers -acetaminop - 04-03 by mouth ity of hen (NORCO) 18:51: 00:00 every 6 [place] 10-325 mg 10 :00 (six) Medical tablet hours as Branch needed. carisoprodo 2019-0 2019- No 350mg Take 350 Univers l (SOMA) 4- 04-03 mg by ity of 350 mg 18:51: 00:00 mouth 3 [place] tablet 10 :00 (three) Medical times Branch daily. ALPRAZolam 2019- No 1mg Take 1 mg U nivers (XANAX) 1 03-02 04-03 by mouth 3 ity of mg tablet 18:50: 00:00 (three) [place] :00 times Medical daily. Branch atorvastati 2019-0 Yes [id number] 40mg Take 1 Univers n 40 mg 4-03 tablet by ity of tablet 00:00: mouth at [place] 00 bedtime. Medical Branch tamsulosin 2020-0 Yes [id number] .4mg Take 1 Univers (FLOMAX) 4-03 9100 capsule by ity o f 0.4 mg 24 00:00: mouth 2 [place] hr capsule 00 (two) Medical times Branch daily. tamsulosin 2020-0 Yes [id number] .4mg Take 1 Univers (FLOMAX) 4-03 9100 capsule by ity o f 0.4 mg 24 00:00: mouth 2 [place] hr capsule 00 (two) Medical times Branch daily. tamsulosin 2020-0 Yes [id number] .4mg Take 1 Univers (FLOMAX) 4-03 9100 capsule by ity o f 0.4 mg 24 00:00: mouth 2 [place] hr capsule 00 (two) Medical times Branch daily. tamsulosin 2020-0 Yes [id number] .4mg Take 1 Univers (FLOMAX) 4-03 9100 capsule by ity o f 0.4 mg 24 00:00: mouth 2 [place] hr capsule 00 (two) Medical times Branch daily. tamsulosin 2020-0 Yes [id number] .4mg Take 1 Univers (FLOMAX) 4-03 9100 capsule by ity o f 0.4 mg 24 00:00: mouth 2 [place] hr capsule 00 (two) Medical times Branch daily. tamsulosin 2020-0 Yes [id number] .4mg Take 1 Univers (FLOMAX) 4-03 9100 capsule by ity o f 0.4 mg 24 00:00: mouth 2 [place] hr capsule 00 (two) Medical times Branch daily. atorvastati 2020-0 Yes [id number] 40mg Take 1 Univers n 40 mg 4-03 tablet by ity of tablet 00:00: mouth at [place] 00 bedtime. Medical Branch ALPRAZolam 2020-0 Yes [id number] 1mg Take 1 U nivers (XANAX) 1 4-03 tablet by ity o f mg tablet 00:00: mouth 2 [place] 00 (two) Medical times Branch daily as needed (anxiety). tamsulosin 2020-0 Yes [id number] .4mg Take 1 Univers (FLOMAX) 4-03 9100 capsule by ity o f 0.4 mg 24 00:00: mouth 2 [place] hr capsule 00 (two) Medical times Branch daily. atorvastati 2020-0 Yes [id number] 40mg Take 1 Univers n 40 mg 4-03 tablet by ity of tablet 00:00: mouth at [place] 00 bedtime. Medical Branch ALPRAZolam 2020-0 Yes [id number] 1mg Take 1 U nivers (XANAX) 1 4-03 tablet by ity o f mg tablet 00:00: mouth 2 [place] 00 (two) Medical times Branch daily as needed (anxiety). tamsulosin 2020-0 Yes [id number] .4mg Take 1 Univers (FLOMAX) 4-03 9100 capsule by ity o f 0.4 mg 24 00:00: mouth 2 [place] hr capsule 00 (two) Medical times Branch daily. atorvastati 2020-0 Yes [id number] 40mg Take 1 Univers n 40 mg 4-03 tablet by ity of tablet 00:00: mouth at [place] 00 bedtime. Medical Branch ALPRAZolam 2020-0 Yes [id number] 1mg Take 1 U nivers (XANAX) 1 4-03 tablet by ity o f mg tablet 00:00: mouth 2 [place] 00 (two) Medical times Branch daily as needed (anxiety). tamsulosin 2020-0 Yes [id number] .4mg Take 1 Univers (FLOMAX) 4-03 9100 capsule by ity o f 0.4 mg 24 00:00: mouth 2 [place] hr capsule 00 (two) Medical times Branch daily. atorvastati 2020-0 Yes [id number] 40mg Take 1 Univers n 40 mg 4-03 tablet by ity of tablet 00:00: mouth at [place] 00 bedtime. Medical Branch ALPRAZolam 2020-0 Yes [id number] 1mg Take 1 U nivers (XANAX) 1 4-03 tablet by ity o f mg tablet 00:00: mouth 2 [place] 00 (two) Medical times Branch daily as needed (anxiety). tamsulosin 2020-0 Yes [id number] .4mg Take 1 Univers (FLOMAX) 4-03 9100 capsule by ity o f 0.4 mg 24 00:00: mouth 2 [place] hr capsule 00 (two) Medical times Branch daily. atorvastati 2019-0 Yes [id number] 40mg Take 1 Univers n 40 mg 4-03 tablet by ity of tablet 00:00: mouth at [place] 00 bedtime. Medical Branch ALPRAZolam 2019-0 Yes [id number] 1mg Take 1 U nivers (XANAX) 1 4-03 tablet by ity o f mg tablet 00:00: mouth 2 [place] 00 (two) Medical times Branch daily as needed (anxiety). tamsulosin 2020-0 Yes [id number] .4mg Take 1 Univers (FLOMAX) 4-03 9100 capsule by ity o f 0.4 mg 24 00:00: mouth 2 [place] hr capsule 00 (two) Medical times Branch daily. atorvastati 2020-0 Yes [id number] 40mg Take 1 Univers n 40 mg 4-03 tablet by ity of tablet 00:00: mouth at [place] 00 bedtime. Medical Branch tamsulosin 2020-0 Yes [id number] .4mg Take 1 Univers (FLOMAX) 4-03 9100 capsule by ity o f 0.4 mg 24 00:00: mouth 2 [place] hr capsule 00 (two) Medical times Branch daily. atorvastati 2020-0 Yes [id number] 40mg Take 1 Univers n 40 mg 4-03 tablet by ity of tablet 00:00: mouth at [place] 00 bedtime. Medical Branch tamsulosin Yes [id number] .4mg Take 1 Univers (FLOMAX) 4-03 9100 capsule by ity o f 0.4 mg 24 00:00: mouth 2 [place] hr capsule 00 (two) Medical times Branch daily. atorvastati Yes [id number] 40mg Take 1 Univers n 40 mg 4-03 tablet by ity of tablet 00:00: mouth at [place] 00 bedtime. Medical Branch tamsulosin Yes [id number] .4mg Take 1 Univers (FLOMAX) 4-03 9100 capsule by ity o f 0.4 mg 24 00:00: mouth 2 [place] hr capsule 00 (two) Medical times Branch daily. atorvastati 2020- No [id number] 40mg Take 1 Univers n 40 mg 4-03 04-21 tablet by ity of tablet 00:00: 00:00 mouth at [place] 00 :00 bedtime. Medical Branch ALPRAZolam 2019- No [id number] 1mg Take 1 Univers (XANAX) 1 4-03 06-19 tablet by ity of mg tablet 00:00: 00:00 mouth 2 [place] 00 :00 (two) Medical times Branch daily as needed (anxiety). tamsulosin 2019- No [id number] .4mg Take 1 Univers (FLOMAX) 4-03 04-03 9100 capsule by ity of 0.4 mg 24 00:00: 00:00 mouth [place] hr capsule 00 :00 daily. Medical Branch carisoprodo Yes 350mg Take 350 U nivers l (SOMA) 1-03 mg by ity of 350 mg 20:24: mouth 3 [place] tablet 46 (three) Medical times Branch daily. aspirin 81 2019-0 Yes 81mg Take 81 mg U nivers mg chewable 1-03 by mouth ity of tablet 20:24: daily. [address] Branch aspirin 81 2020-0 Yes 81mg Take 81 mg U nivers mg chewable 1-03 by mouth ity of tablet 20:24: daily. [address] aspirin 81 2019-0 Yes 81mg Take 81 mg U nivers mg chewable 1-03 by mouth ity of tablet 20:24: daily. [address] aspirin 81 2020-0 Yes 81mg Take 81 mg U nivers mg chewable 1-03 by mouth ity of tablet 20:24: daily. [address] aspirin 81 2020-0 Yes 81mg Take 81 mg U nivers mg chewable 1-03 by mouth ity of tablet 20:24: daily. [address] HYDROcodone 2020-0 Yes 1{tbl} Take 1 Tab Univers -acetaminop 1-03 by mouth ity of hen (NORCO) 20:24: every 6 [place] 10-325 mg 46 (six) Medical tablet hours as Branch needed. ALPRAZolam 2020-0 Yes 1mg Take 1 mg Un [place] (XANAX) 1 1-03 by mouth 3 ity of mg tablet 20:24: (three) [address] daily. Branch carisoprodo 2020-0 Yes 350mg Take 350 U nivers l (SOMA) 1-03 mg by ity of 350 mg 20:24: mouth 3 [place] tablet 46 (three) Medical times Branch daily. aspirin 81 2020-0 Yes 81mg Take 81 mg U nivers mg chewable 1-03 by mouth ity of tablet 20:24: daily. [address] aspirin 81 2020-0 Yes 81mg Take 81 mg U nivers mg chewable 1-03 by mouth ity of tablet 20:24: daily. [address] aspirin 81 2020-0 Yes 81mg Take 81 mg U nivers mg chewable 1-03 by mouth ity of tablet 20:24: daily. [address] aspirin 81 2020-0 Yes 81mg Take 81 mg U nivers mg chewable 1-03 by mouth ity of tablet 20:24: daily. [address] aspirin 81 2020-0 Yes 81mg Take 81 mg U nivers mg chewable 1-03 by mouth ity of tablet 20:24: daily. [address] aspirin 81 2020-0 Yes 81mg Take 81 mg U nivers mg chewable 1-03 by mouth ity of tablet 20:24: daily. [address] aspirin 81 2020-0 Yes 81mg Take 81 mg U nivers mg chewable 1-03 by mouth ity of tablet 20:24: daily. [address] Branch HYDROcodone 2020-0 Yes 1{tbl} Take 1 Tab Univers -acetaminop 1-03 by mouth ity of hen (NORCO) 20:24: every 6 [place] 10-325 mg 46 (six) Medical tablet hours as Branch needed. aspirin 81 2020-0 Yes 81mg Take 81 mg U nivers mg chewable 1-03 by mouth ity of tablet 20:24: daily. [address] Branch ALPRAZolam 2020-0 Yes 1mg Take 1 mg Un [place] (XANAX) 1 1-03 by mouth 3 ity of mg tablet 20:24: (three) [place] [address] times Medical daily. Branch aspirin 81 2020-0 Yes 81mg Take 81 mg U nivers mg chewable 1-03 by mouth ity of tablet 20:24: daily. [address] Branch aspirin 81 2020-0 Yes 81mg Take 81 mg U nivers mg chewable 1-03 by mouth ity of tablet 14:24: daily. [address] Branch aspirin 81 2020-0 Yes 81mg Take 81 mg U nivers mg chewable 1-03 by mouth ity of tablet 14:24: daily. [address] Branch topiramate 2020-0 Yes [id number] 100mg Take 1 Univers 100 mg 1-03 tablet by ity of tablet 00:00: mouth 2 [place] 00 (two) Medical times Branch daily. topiramate 2020-0 Yes [id number] 100mg Take 1 Univers 100 mg 1-03 tablet by ity of tablet 00:00: mouth 2 [place] 00 (two) Medical times Branch daily. tamsulosin 2020-0 Yes [id number] .4mg Take 1 Univers (FLOMAX) 1-03 9100 capsule by ity o f 0.4 mg 24 00:00: mouth [place] hr capsule 00 daily. Medical Branch atorvastati 2020-0 Yes [id number] 40mg Take 1 Univers n 40 mg 1-03 tablet by ity of tablet 00:00: mouth at [place] 00 bedtime. Medical Branch ibuprofen 2020-0 Yes [id number] 800mg Take 1 Univers 800 mg 1-03 2 tablet by ity of tablet 00:00: mouth 3 [place] 00 (three) Medical times Branch daily with meals. topiramate 2020-0 Yes [id number] 100mg Take 1 Univers 100 mg 1-03 tablet by ity of tablet 00:00: mouth 2 [place] 00 (two) Medical times Branch daily. tamsulosin 2020-0 Yes [id number] .4mg Take 1 Univers (FLOMAX) 1-03 9100 capsule by ity o f 0.4 mg 24 00:00: mouth [place] hr capsule 00 daily. Medical Branch atorvastati 2020-0 Yes [id number] 40mg Take 1 Univers n 40 mg 1-03 tablet by ity of tablet 00:00: mouth at [place] 00 bedtime. Medical Branch ibuprofen 2020-0 Yes [id number] 800mg Take 1 Univers 800 mg 1-03 2 tablet by ity of tablet 00:00: mouth 3 [place] 00 (three) Medical times Branch daily with meals. topiramate 2020-0 Yes [id number] 100mg Take 1 Univers 100 mg 1-03 tablet by ity of tablet 00:00: mouth 2 [place] 00 (two) Medical times Branch daily. topiramate 2020-0 Yes [id number] 100mg Take 1 Univers 100 mg 1-03 tablet by ity of tablet 00:00: mouth 2 [place] 00 (two) Medical times Branch daily. topiramate 2020-0 Yes [id number] 100mg Take 1 Univers 100 mg 1-03 tablet by ity of tablet 00:00: mouth 2 [place] 00 (two) Medical times Branch daily. topiramate 2020-0 Yes [id number] 100mg Take 1 Univers 100 mg 1-03 tablet by ity of tablet 00:00: mouth 2 [place] 00 (two) Medical times Branch daily. topiramate 2020-0 Yes [id number] 100mg Take 1 Univers 100 mg 1-03 tablet by ity of tablet 00:00: mouth 2 [place] 00 (two) Medical times Branch daily. topiramate 2020-0 Yes [id number] 100mg Take 1 Univers 100 mg 1-03 tablet by ity of tablet 00:00: mouth 2 [place] 00 (two) Medical times Branch daily. topiramate 2020-0 Yes [id number] 100mg Take 1 Univers 100 mg 1-03 tablet by ity of tablet 00:00: mouth 2 [place] 00 (two) Medical times Branch daily. topiramate 2020-0 Yes [id number] 100mg Take 1 Univers 100 mg 1-03 tablet by ity of tablet 00:00: mouth 2 [place] 00 (two) Medical times Branch daily. tamsulosin 2020-0 2020- No [id number] .4mg Take 1 Univers (FLOMAX) 1-03 04-03 9100 capsule by ity of 0.4 mg 24 00:00: 00:00 mouth [place] hr capsule 00 :00 daily. Medical Branch atorvastati 2020- No [id number] 40mg Take 1 Univers n 40 mg 12-02 tablet by ity of tablet 00:00: 00:00 mouth at [place] 00 :00 bedtime. Medical Branch ibuprofen 2020- No [id number] 800mg Take 1 Univers 800 mg 12-02- 2 tablet by ity of tablet 00:00: 00:00 mouth 3 [place] 00 :00 (three) Medical times Branch daily with meals. atorvastati Yes 40mg QD Take 40 mg Methodi n (LIPITOR) 7-[address] 40 MG 21:10: daily. Hospita tablet 39 l atorvastati 0 Yes 40mg QD Take 40 mg Methodi n (LIPITOR) 7-[address] 40 MG 21:10: daily. Hospita tablet 39 l topiramate 2018-0 Yes 100mg Q.5D Take 100 [facility] thodi (TOPAMAX) 7-[address] 100 MG 21:10: mouth 2 Hospita tablet 38 (two) l times a day. tamsulosin 0 Yes .4mg Q.5D Take 0.4 Met hodi (FLOMAX) 7-[address] 0.4 mg 21:10: mouth 2 Hospita capsule,ext 38 (two) l ended times a release day. 30 24hr minutes after the same meal each day buPROPion 2018-0 Yes 150mg Q.5D Take 150 Met hodi SR 7-[address] (WELLBUTRIN 21:10: mouth 2 Hos awilda SR) 150 MG 38 (two) l 12 hr times a tablet day. topiramate 2018- Yes 100mg Q.5D Take 100 Me thodi (TOPAMAX) 7-[address] 100 MG 21:10: mouth 2 Hospita tablet 38 (two) l times a day. tamsulosin 2019-0 Yes .4mg Q.5D Take 0.4 Met hodi (FLOMAX) 7-[address] 0.4 mg 21:10: mouth 2 Hospita capsule,ext 38 (two) l ended times a release day. 30 24hr minutes after the same meal each day buPROPion 2019-0 Yes 150mg Q.5D Take 150 Met hodi SR 7-[address] (WELLBUTRIN 21:10: mouth 2 Hos awilda SR) 150 MG 38 (two) l 12 hr times a tablet day. Vital Signs Vital Name Observation Time Observation Value Comments Source Systolic blood 2023-04-13 03:00:00 120 mm[Hg] [facility] Diastolic blood 2023-04-13 03:00:00 94 mm[Hg[facility] 2023-04-13 03:00:00 65 /min [facility] Respiratory rate 2023-04-13 03:00:00 17 /min [facility] Oxygen saturation in 2023-04-13 03:00:00 98 /min [facility] Arterial blood by [facility] Pulse oximetry Branch Body temperature 2023-04-13 01:24:00 36.89 Natty [facility] height 2023-04-13 01:24:00 172.7 cm [facility] Body weight 2023-04-13 01:24:00 81.194 kg [facility] BMI 2023-04-13 01:24:00 27.22 kg/m2 [facility] Systolic blood 2023-03-31 15:53:00 120 mm[Hg] Ewelina Boyd - pressure External Diastolic blood 2023-03-31 15:53:00 84 mm[Hg] Danie Boyd - pressure External Heart rate 2023-03-31 15:53:00 67 /min Ewelina roche - External Body temperature 2023-03-31 15:53:00 36.56 Natty Marina smiley Seybold - External Respiratory rate 2023-03-31 15:53:00 15 /min Marina smiley Seybold - External Body height 2023-03-31 15:53:00 172.7 cm Ewelina roche - External Body weight 2023-03-31 15:53:00 81.285 kg Ewelina S baljitbold - External BMI 2023-03-31 15:53:00 27.25 kg/m2 Ewelina roche - External Oxygen saturation in 2023-03-31 15:53:00 95 /min Ewelina Seybold - Arterial blood by External Pulse oximetry Systolic blood 2023-03-19 14:32:00 125 mm[Hg] Ewelina Hirschybold - pressure External Diastolic blood 2023-03-19 14:32:00 82 mm[Hg] Danie Gonzalezold - pressure External Heart rate 2023-03-19 14:32:00 89 /min Ewelina smileybomyrna - External Body temperature 2023-03-19 14:32:00 36.44 Natty Marina Boyd - External Respiratory rate 2023-03-19 14:32:00 14 /min Marina Boyd - External Body height 2023-03-19 14:32:00 172.7 cm Ewelina smileybomyrna - External Body weight 2023-03-19 14:32:00 82.101 kg Ewelina roche - External BMI 2023-03-19 14:32:00 27.52 kg/m2 Ewelina smileybomyrna - External Oxygen saturation in 2023-03-19 14:32:00 99 /min Ewelina Boyd - Arterial blood by External Pulse oximetry Procedures Procedure Date / Time Performed Performing Clinician [facility] e EKG-12 LEAD 2023-04-13 04:14:[address] [facility] CT CHEST PULMONARY 2023-04-13 03:14:38 Karuna Sanford [facility] ANGIOGRAM Medical Branch XR CHEST 1 VW 2023-04-13 02:24:[address] [facility] TROPONIN I 2023-04-13 01:53:[address] [facility] COMP. METABOLIC PANEL 2023-04-13 01:53:00 Karuna Sanford [facility] ([id number]) [facility] Branch CBC WITH DIFF 2023-04-13 01:53:[address] [facility] D-DIMER 2023-04-13 01:53:[address] [facility] N-TERMINAL PRO-BNP 2023-04-13 01:53:00 Karuna Sanford [facility] Plan of Care Planned Activity Planned Date Details Comments Source Future Scheduled 2023-04-12 COVID-19 VACCINE (#1) [facility] Test 20:14:45 [code = COVID-19 VACCINE (#1)] Future Scheduled 2023-04-12 [facility] SCREENING [facility] Test 20:14:45 [code = COLONOSCOPY SCREENING] Future Scheduled 2023-04-12 SHINGLES VACCINES (1 Met [facility] Test 20:14:45 of 2) [code = SHINGLES VACCINES (1 of 2)] Future Scheduled 2023-04-12 INFLUENZA VACCINE Method is Hospital Test 20:14:45 [code = INFLUENZA VACCINE] Future Scheduled 2022-09-08 HEPATITIS B VACCINES Met [facility] Test 14:53:04 (1 of 3 - 3-dose series) [code = HEPATITIS B VACCINES (1 of 3 - 3-dose series)] Future Scheduled 2022-09-08 COVID-19 VACCINE (#1) [facility] Test 14:53:04 [code = COVID-19 VACCINE (#1)] Future Scheduled 2022-09-08 COLONOSCOPY SCREENING [facility] Test 14:53:04 [code = COLONOSCOPY SCREENING] Future Scheduled 2022-09-08 SHINGLES VACCINES (1 Met [facility] Test 14:53:04 of 2) [code = SHINGLES VACCINES (1 of 2)] Future Scheduled 2022-09-08 INFLUENZA VACCINE Method [facility] Hospital Test 14:53:04 [code = INFLUENZA VACCINE] Encounters Start End Encounter Admission Attending Care Care Encounter Source Date/Time Date/Time Type Type Clinicians Facility Department ID 2023-06-18 2023-06-18 Outpatient EWELINA ENGEL [id number] Ewelina 10:00:00 10:00:00 MICKY Hirschybol anil 2023-06-09 2023-06-09 Outpatient MAHNAZ JADENDARRYL PRETTY [id number] Ewelina 11:15:00 11:15:00 Seybol anil 2023-05-29 2023-05-29 Outpatient EWELINA KONG [id number] Ewelina 13:55:00 13:55:00 RONALDO Hirschybol anil 2023-04-30 2023-04-30 Outpatient EWELINA ENAMORADO [id number] Ewelina 14:00:00 14:00:00 BURTON Seybol d 2023-04-12 2023-04-12 Emergency X JUVENAL, [facility] ERT [id number] Univers 20:17:00 23:23:00 KARUNA stonemanuela [facility] 2023-04-12 2023-04-12 Emergency Juvenal [facility] [id number] Univers 20:17:00 23:23:00 Karuna Reina [place] [id number] [facility] [id number] [facility] [phone] [place] [address] Branch 2023-04-09 2023-04-09 Outpatient EWELINA ENGEL [id number] Ewelina 00:00:00 00:00:00 MICKY Seybol d 2023-04-03 2023-04-03 Outpatient EWELINA ENGEL [id number] Ewelina 00:00:00 00:00:00 MICKY Seybol d 2023-03-31 2023-03-31 Outpatient EWELINA ENAMORADO [id number] Ewelina 10:45:00 10:45:00 BURTON Seybol d 2023-03-30 2023-03-30 Outpatient EWELINA ENGEL [id number] Ewelina 00:00:00 00:00:00 MICKY Seybol d 2023-03-26 2023-03-26 Outpatient EWELINA LEWIS [id number] Ewelina 13:00:00 13:00:00 OMAIRA Seybol d 2023-03-26 2023-03-26 Outpatient EWELINA PRETTY [id number] Ewelina 11:20:00 11:20:00 Seybol d 2023-03-26 2023-03-26 Outpatient EWELINA ENGEL [id number] Ewelina 00:00:00 00:00:00 MICKY Seybol d 2023-03-23 2023-03-23 Outpatient EWELINA ENGEL [id number] Ewelina 00:00:00 00:00:00 MICKY Seybol d 2023-03-22 2023-03-22 Outpatient EWELINA ENGEL [id number] Ewelina 00:00:00 00:00:00 MICKY Seybol d 2023-03-19 2023-03-19 Outpatient LAB90 EWELINA EWELINA [id number] Ewelina 10:45:00 10:45:00 Seybol d 2023-03-19 2023-03-19 Outpatient HUNDL, EWELINA COLLADOSEY [id number] Ewelina 10:00:00 10:00:00 MICKY Gonzalezol anil 2022-10-20 2022-10-20 [facility] [id number] Univers 00:00:00 00:00:00 [facility] [id number] it y of Edward [place] [id number] Bryant as NENITA?BLEA [phone] [place] dicemily [address] 2021-06-23 2021-06-23 [facility] [id number] Univers 00:00:00 00:00:00 Seng [place] [id number] i [id number] [phone] [facility] nal [address] [place] [address] 2021-05-17 2021-05-17 [facility] [id number] Univers 00:00:00 00:00:00 Seng [place] [id number] i ty of [id number] [phone] [facility] nal [address] [place] [address] 2021-03-19 2021-03-19 [facility] [id number] Univers 00:00:00 00:00:00 [place]eng [place] [id number] i ty of [id number] [phone] [facility] nal [address] [place] [address] 2020-10-15 2020-10-15 [facility] [id number] Univers 00:00:00 00:00:00 Seng [facility] [id number] it y of [place] [id number] [place] as Professio [phone] [facility] nal [address] [place] [address] Office [facility] One 2020-10-15 2020-10-15 [facility] [id number] Univers 00:00:00 00:00:[address] [facility] [id number] it y of [place] [id number] [place] as Professio [phone] [address] One 2020-07-30 2020-07-30 [facility] [id number] Univers 00:00:00 00:00:00 Seng [facility] [id number] it y of Edward [place] [id number] [place] Professio [phone] [address] One 2020-05-18 2020-05-18 [facility] [id number] Univers 00:00:00 00:00:[address] [facility] [id number] it y of Edward [place] [id number] [place] as Professio [phone] [facility] nal [address] [place] [address] One 2020-03-30 2020-03-30 [facility] [id number] Univers 00:00:00 00:00:[address] [facility] [id number] it y of Edward [place] [id number] [place] as Professio [phone] [facility] nal [address] [place] [address] One 2020-03-29 2020-03-29 [facility] [id number] Univers 00:00:00 00:00:00 Seng [place] [id number] i ty of [id number] [phone] [place] dical nal [address] [place] [address] 2020-03-28 2020-03-28 Emergency [facility] [id number] SLS 15:48:00 15:48:00 [id number] 2020-03-06 2020-03-06 [facility] [id number] Univers 00:00:00 00:00:[address] [facility] [id number] it y of Edward [place] [id number] [place] Professio [phone] [address] 2020-03-05 2020-03-05 [facility] [id number] Univers 00:00:00 00:00:[address] [facility] [id number] it y of Edward [place] [id number] [place] as Professio [phone] [address] 2020-03-02 2020-03-02 Outpatient R [facility] [id number] Univers 14:00:00 14:00:00 SENG ity of [facility] 2020-03-02 2020-03-02 Telemedici [facility] 1.2.840.114 [id number] Univers 07:48:15 08:03:15 ne Visit Seng [place] [id number] ity of [id number] [phone] [address] 2020-01-23 2020-01-23 [facility] [id number] Univers 00:00:00 00:00:[address] [facility] [id number] it y of Edward [place] [id number] [place] as Professio [phone] [address] 2020-01-17 2020-01-17 [facility] [id number] Univers 00:00:00 00:00:00 Seng Health [id number] it y of Edward [place] [id number] [place] as Professio [phone] [address] One Results Test Description Test Time Test Comments Results Result Comments Source COMPREHENSIVE METABOLIC PANEL 2020-03-28 16:58:00 Test Item Value Reference Range Interpretation Comme nts TOTAL PROTEIN (BEAKER) 6.9 gm/dL 6.0-8.5 (test code = 770) ALBUMIN (BEAKER) (test code 4.1 g/dL 3.5-5.0 = 1145) ALKALINE PHOSPHATASE 44 U/L 30-115 (BEAKER) (test code = 346) BILIRUBIN TOTAL (BEAKER) 0.4 mg/dL 0.1-1.2 (test code = 377) SODIUM (BEAKER) (test code 144 meq/L 135-148 = 381) POTASSIUM (BEAKER) (test 4.2 meq/L 3.6-5.5 code = 379) CHLORIDE (BEAKER) (test 113 meq/L 98-106 H code = 382) CO2 (BEAKER) (test code = 23 meq/L 20-29 355) BLOOD UREA NITROGEN 9 mg/dL 10-26 L (BEAKER) (test code = 354) CREATININE (BEAKER) (test 0.96 mg/dL 0.50-1.20 code = 358) GLUCOSE RANDOM (BEAKER) 96 mg/dL 70-110 (test code = 652) CALCIUM (BEAKER) (test code 9.6 mg/dL 8.5-10.5 = 697) AST (SGOT) (BEAKER) (test 14 U/L 5-40 code = 353) ALT (SGPT) (BEAKER) (test 20 U/L 5-50 code = 347) EGFR (BEAKER) (test code = 99 mL/min/1.73 sq m ESTIMATED GFR IS NOT 1092) ACCURATE CRE ATININE CLEARANCE IN NV EDICTING GLOMERULAR FILT RATION RATE. ESTIMATED GFR IS NOT APPLICABLE FOR DIALYSIS PATIENTS. Flare Breaker ID - JUSTINPROTHROMBIN [id number] 16:53:00 Test Item Value Reference Range Interpretation Comments PROTIME (BEAKER) (test code = 759) 10.5 sec 9.3-12.0 INR (BEAKER) (test code = 370) 1.0 <=5.9 RECOMMENDED COUMADIN/WARFARIN INR THERAPY RANGESSTANDARD DOSE: 2.0 - 3.0 Includes: PROPHYLAXIS for venous thrombosis, systemic embolization; TREATMENT for venous thrombosis and/or pulmonary embolus.HIGH RISK: Target INR is 2.5-3.5 for patients with mechanical heart valves.Final Information (Auto Output)Final Information (Auto Output)CBC W/PLT COUNT & AUTO [id number] 16:40:00 Test Item Value Reference Range Interpretation Comments WHITE BLOOD CELL COUNT (BEAKER) 5.1 K/ L 4.0-10.0 (test code = 775) RED BLOOD CELL COUNT (BEAKER) 4.17 M/ L 4.20-5.80 L (test code = 761) HEMOGLOBIN (BEAKER) (test code = 13.4 GM/DL 13.0-16.8 410) HEMATOCRIT (BEAKER) (test code = 38.8 % 36.0-50.0 411) MEAN CORPUSCULAR VOLUME (BEAKER) 93.0 fL 82.0-99.0 (test code = 753) MEAN CORPUSCULAR HEMOGLOBIN 32.1 pg 27.0-33.0 (BEAKER) (test code = 751) MEAN CORPUSCULAR HEMOGLOBIN CONC 34.5 GM/DL 32.0-36.0 (BEAKER) (test code = 752) RED CELL DISTRIBUTION WIDTH 13.4 % 12.0-15.0 (BEAKER) (test code = 412) PLATELET COUNT (BEAKER) (test 220 K/CU MM 150-430 code = 756) MEAN PLATELET VOLUME (BEAKER) 10.0 fL 6.0-11.5 (test code = 754) NUCLEATED RED BLOOD CELLS 0 /100 WBC 0-0 (BEAKER) (test code = 413) NEUTROPHILS RELATIVE PERCENT 46 % (BEAKER) (test code = 429) LYMPHOCYTES RELATIVE PERCENT 40 % (BEAKER) (test code = 430) MONOCYTES RELATIVE PERCENT 12 % (BEAKER) (test code = 431) EOSINOPHILS RELATIVE PERCENT 2 % (BEAKER) (test code = 432) BASOPHILS RELATIVE PERCENT 0 % (BEAKER) (test code = 437) NEUTROPHILS ABSOLUTE COUNT 2.33 K/ L 1.80-8.00 (BEAKER) (test code = 670) LYMPHOCYTES ABSOLUTE COUNT 2.00 K/ L 1.48-4.50 (BEAKER) (test code = 414) MONOCYTES ABSOLUTE COUNT (BEAKER) 0.58 K/ L 0.00-1.30 (test code = 415) EOSINOPHILS ABSOLUTE COUNT 0.12 K/ L 0.00-0.50 (BEAKER) (test code = 416) BASOPHILS ABSOLUTE COUNT (BEAKER) 0.02 K/ L 0.00-0.20 (test code = 417) IMMATURE GRANULOCYTES-RELATIVE 0 % 0-0 PERCENT (MIKAEL) (test code = 2801)
[2023-04-14 10:06] LABS: Absolute Lymphocytes (CBC) 1.4 K/uL (0.7-4.9); Hematocrit 40.2 % (39.6-49.0); Lymphocytes % 37.7 % (15.3-44.8); MCV 92.2 fL (80-100); MPV 7.8 fL (7.6-11.3); RBC Red Blood Cell Count 4.36 M/uL (4.33-5.43)
[2023-04-14 10:11] LABS: Protime INR 1.05
[2023-04-14 10:27] LABS: Albumin 3.7 g/dL (3.4-5.0); Bilirubin Direct 0.1 mg/dL (0-0.2); Bilirubin Indirect, Calculated 0.3 mg/dL (0.2-0.8); Bilirubin Total 0.4 mg/dL (0.2-1.0); Potassium 3.7 mEq/L (3.5-5.1); Protein, Total 8.6 g/dL (6.4-8.2); Troponin High Sensitivity 3.8 pg/mL (<58.9)
[2023-04-14 10:39] LABS: Thyroid Stimulating Hormone 0.927 uIU/mL (0.358-3.740)
[2023-04-14] MEDS ORDERED: HYDROCODONE/APAP 5/325 MG TAB ONE (10:49)
--- NOTE | 2023-04-14 11:12 | EDPHYS ---
Physician Documentation [facility] Name: Benigno Crespo Age: 57 yrs Sex: Male : 1965 Arrival Date: 04/14/2023 Time: 09:27 Bed 17 Private MD: ED Physician Eduard Metcalf HPI: 04/14 11:05 This 57 yrs old Black Male presents to ER via Ambulatory with complaints of Chest Pain, rn Shortness Of Breath, Dizziness. 11:05 The patient or guardian reports chest pain that is located primarily in the substernal rn area. Onset: 3 week(s) ago. The pain does not radiate. Associated signs and symptoms: Pertinent positives: dizziness, shortness of breath. The chest pain is described as aching, a heaviness. Duration: The patient or guardian reports multiple episodes, that are intermittent. Modifying factors: The symptoms are alleviated by nothing. the symptoms are aggravated by exertion. Severity of pain: At its worst the pain was moderate in the emergency department the pain has improved. The patient has not experienced similar symptoms in the past. The patient has been recently seen by a physician:. Pt reports chest pain for 3 weeks, intermittent, last atleast 5 min, worse with exertion and physical work, assoc with sob and dizziness. No fever/cough. No trauma. Seen at [facility] this week and had neg w/u, told to f/u with cardiology. Symptoms have become more frequent and concerning, so came in today for reevaluation. . Historical: - Allergies: 09:55 SUMATRIPTAN; nj1 - PMHx: 09:55 Hyperlipidemia; Migraines; nj1 - Immunization history:: Client reports receiving the 2nd dose of the Covid vaccine. - Social history:: Smoking status: Patient/guardian denies using tobacco, Stopped _ months ago 1. - Family history:: not pertinent. - Hospitalizations: : No recent hospitalization is reported. ROS: 11:05 Constitutional: Negative for fever, chills, and weight loss, Eyes: Negative for injury, rn pain, redness, and discharge, Cardiovascular: Negative for palpitations, and edema, Respiratory: + sob Abdomen/GI: Negative for abdominal pain, nausea, vomiting, diarrhea, and constipation, MS/Extremity: Negative for injury and deformity, Skin: Negative for injury, rash, and discoloration, Neuro: Negative for headache, numbness, tingling, and seizure. Exam: 11:05 Constitutional: This is a well developed, well nourished patient who is awake, alert, rn and in no acute distress. Head/Face: Normocephalic, atraumatic. Cardiovascular: Regular rate and rhythm. No pulse deficits. Respiratory: No increased work of breathing, no retractions or nasal flaring. Abdomen/GI: Soft, non-tender Skin: Warm, dry MS/ Extremity: Pulses equal, no cyanosis. Neuro: Awake and alert, GCS 15 Vital Signs: 09:34 BP 116 / 95; Pulse 81; Resp 18; Temp 98.4; Pulse Ox 100% on R/A; Weight 79.38 kg; nj1 Height 5 ft. 8 in. ; Pain 0/10; 11:28 BP 117 / 88; Pulse 76; Resp 20; Pulse Ox 100% ; bp 09:34 Body Mass Index 26.61 (79.38 kg, 172.72 cm) [facility] 09:34 Pain Scale: Adult [facility] MDM: 09:31 Patient medically screened. rn 11:05 Differential diagnosis: acute myocardial infarction, acute pericarditis, anxiety, rn coronary artery disease chest wall pain, costochondritis, gastroesophageal reflux disease (GERD), peptic ulcer disease, pleurisy, pneumonia, pneumothorax, pulmonary embolus, stable angina, unstable angina. HEART Score: History: Moderately Suspicious (1), ECG: Normal (0), Age: > 45 and < 65 years (1), Risk Factors: 1 or 2 risk factors (1), Troponin: < or = 1 x Normal Limit (0), Total Score = 3. Data reviewed: vital signs, nurses notes, lab test result(s), EKG, radiologic studies, plain films, and as a result, I will admit patient. Management of patient was discussed with the following: Hospitalist: . Counseling: I had a detailed discussion with the patient and/or guardian regarding: the historical points, exam findings, and any diagnostic results supporting the discharge/admit diagnosis, lab results, radiology results, the need for further work-up and treatment in the hospital. Response to treatment: the patient's symptoms have mildly improved after treatment, and as a result, I will admit patient. 04/14 09:47 Order name: Basic Metabolic Panel; Complete Time: 10:39 rn 04/14 09:47 Order name: CBC with Diff; Complete Time: 10:39 rn 04/14 09:47 Order name: LFT's; Complete Time: 10:39 rn 04/14 09:47 Order name: NT PRO-BNP; Complete Time: 10:39 rn 04/14 09:47 Order name: PT-INR; Complete Time: 10:39 rn 04/14 09:47 Order name: Troponin HS; Complete Time: 10:39 rn 04/14 09:51 Order name: TSH; Complete Time: 11:04 rn 04/14 09:51 Order name: T4 Free; Complete Time: 11:04 rn 04/14 13:28 Order name: Hemoglobin A1c [facility] 04/14 09:47 Order name: XRAY Chest (1 view); Complete Time: 11:51 rn 04/14 09:47 Order name: CT Chest For PE Angio; Complete Time: 11:51 rn 04/14 09:47 Order name: EKG; Complete Time: 09:48 rn 04/14 13:28 Order name: Heart Healthy [facility] 04/14 09:47 Order name: Cardiac monitoring; Complete Time: 09:58 rn 04/14 09:47 Order name: EKG - Nurse/Tech; Complete Time: 09:58 rn 04/14 09:47 Order name: IV Saline Lock; Complete Time: 09:58 rn 04/14 09:47 Order name: Labs collected and sent; Complete Time: 09:58 rn 04/14 09:47 Order name: O2 Per Protocol; Complete Time: 09:58 rn 04/14 09:47 Order name: O2 Sat Monitoring; Complete Time: 09:58 rn Administered Medications: 10:49 Drug: HYDROcodone-acetaminophen PO 5 mg-325 mg 1 tabs Route: PO; bp Disposition Summary: 04/14/23 11:11 Hospitalization Ordered Hospitalization Status: Observation rn Provider: Navi Franco rn Location: Telemetry/MedSurg (observation) rn Condition: Stable rn Problem: an ongoing problem rn Symptoms: have improved rn Bed/Room Type: Standard rn Room Assignment: 212(04/14/23 14:34) bd Diagnosis - Chest pain, unspecified rn Forms: - Medication Reconciliation Form rn - SBAR form rn Signatures: Dispatcher [employer] Ольга Avitia Roman, MD MD rn Wilber Jj, RN RN bp Kandis Krishnamurthy RN RN nj1 Corrections: (The following items were deleted from the chart) 14:34 11:11 ivan roman
--- NOTE | 2023-04-14 11:12 | ER ---
Nurse's Notes [facility] Name: Benigno Crespo Age: 57 yrs Sex: Male : 1965 Arrival Date: 04/14/2023 Time: 09:27 Bed 17 Private MD: Diagnosis: Chest pain, unspecified Presentation: 04/14 09:34 Chief complaint: Patient states: Chest pain, shortness of breath and lightheaded on/off nj1 for 2-3 weeks. Went Thursday to [place] ED and wanted to be admitted but patient left due to insurance and he is here because he is still having issues. Denies symptoms as of right now. Coronavirus screen: Vaccine status: Patient reports receiving the 2nd dose of the covid vaccine. Ebola Screen: No symptoms or risks identified at this time. 09:34 Method Of Arrival: Ambulatory [facility] 09:34 Initial Sepsis Screen: Does the patient meet any 2 criteria? No. Patient's initial al1 sepsis screen is negative. Does the patient have a suspected source of infection? No. Patient's initial sepsis screen is negative. Risk Assessment: Do you want to hurt yourself or someone else? Patient reports no desire to harm self or others. Onset of symptoms was March 24, 2023. 09:34 Acuity: JD 3 nj1 Triage Assessment: 09:45 General: Appears in no apparent distress. comfortable, Behavior is calm, cooperative, bp appropriate for age. Pain: Denies pain. EENT: No deficits noted. Neuro: No deficits noted. Cardiovascular: Reports chest pain. Respiratory: No deficits noted. GI: No signs and/or symptoms were reported involving the gastrointestinal system. : No signs and/or symptoms were reported regarding the genitourinary system. Derm: No deficits noted. Musculoskeletal: No deficits noted. Historical: - Allergies: 09:55 SUMATRIPTAN; nj1 - PMHx: 09:55 Hyperlipidemia; Migraines; nj1 - Immunization history:: Client reports receiving the 2nd dose of the Covid vaccine. - Social history:: Smoking status: Patient/guardian denies using tobacco, Stopped _ months ago 1. - Family history:: not pertinent. - Hospitalizations: : No recent hospitalization is reported. Screenin:45 [facility] ED Fall Risk Assessment (Adult) History of falling in the last 3 months, bp including since admission No falls in past 3 months (0 pts). Abuse screen: Denies threats or abuse. Denies injuries from another. Nutritional screening: No deficits noted. Tuberculosis screening: No symptoms or risk factors identified. Assessment: 09:45 General: SEE TRIAGE NOTE. bp 14:59 Pain: Pain does not radiate. Pain began suddenly. ld1 Vital Signs: 09:34 BP 116 / 95; Pulse 81; Resp 18; Temp 98.4; Pulse Ox 100% on R/A; Weight 79.38 kg; nj1 Height 5 ft. 8 in. ; Pain 0/10; 11:28 BP 117 / 88; Pulse 76; Resp 20; Pulse Ox 100% ; bp 09:34 Body Mass Index 26.61 (79.38 kg, 172.72 cm) nj1 09:34 Pain Scale: Adult [facility] ED Course: 09:28 Patient arrived in ED. rg4 09:31 Eduard Metcalf MD is Attending Physician. rn 09:36 Wilber Jj RN is Primary Nurse. bp 09:45 Patient has correct armband on for positive identification. Bed in low position. Call bp light in reach. Side rails up X2. Client placed on continuous cardiac and pulse oximetry monitoring. NIBP monitoring applied. 09:55 Triage completed. nj1 09:56 Arm band placed on. nj1 09:58 Inserted saline lock: 20 gauge in right forearm, using aseptic technique. Blood bp collected. 10:24 XRAY Chest (1 view) In Process Unspecified. EDMS 10:42 CT Chest For PE Angio In Process Unspecified. EDMS 11:11 Navi Franco MD is Hospitalizing Provider. rn 11:28 Patient maintains SpO2 saturation greater than 95% on room air. bp 14:59 No provider procedures requiring assistance completed. Assist provider with bone marrow ld1 aspiration. Patient admitted, IV remains in place. Administered Medications: 10:49 Drug: HYDROcodone-acetaminophen PO 5 mg-325 mg 1 tabs Route: PO; bp Medication: 09:45 VIS not applicable for this client. bp Outcome: 11:11 Decision to Hospitalize by Provider. rn 14:59 Admitted to Med/surg accompanied by dustin, via wheelchair, room 212, with chart, Report ld1 called to BENJI Fontaine 14:59 Condition: stable 14:59 Instructed on the need for admit. 15:26 Patient left the ED. ld1 Signatures: Dispatcher [employer] EDMS Eduard Metcalf MD MD rn Zahra Pike rg4 Wilber Jj RN RN Viviane Harmon RN RN ld1 Kandis Krishnamurthy RN RN nj1
--- NOTE | 2023-04-14 11:32 | RAD REPORT ---
[facility] 10[facility]22 am CLINICAL HISTORY: CHEST PAIN COMPARISON: Chest Single View dated 09/08/2022; Abdomen 1 View (KUB) dated 03/27/2020 TECHNIQUE: Portable AP view of the chest. FINDINGS: The lungs are clear. No pneumothorax or effusion. The cardiomediastinal contours are unrem arkable. IMPRESSION: No acute cardiopulmonary process.
--- NOTE | 2023-04-14 11:43 | RAD REPORT ---
EXAM DESCRIPTION: CT - Chest For Pe Angio - 04/14/2023 10:40 am CLINICAL HISTORY: Dyspnea;Chest pain COMPARISON: No comparisons TECHNIQUE: Thin axial CT images of the chest were obtained following administration of 95 mL Isovue 370 IV contrast. Multiplanar reconstructions, and maximum intensity projection reconstructions were g enerated and reviewed. Exam utilizes a protocol for optimal evaluation of pulmonary arterial tree. All CT scans are performed using dose optimization technique as appropriate and may include automated exposure control or mA/KV adjustment according to patient size. FINDINGS: Pulmonary arteries are normal. No emboli or other suspicious finding. No acute or signific ant aorta findings. No mass or infiltrate in the lung parenchyma. No pleural thickening or pleural effusion. No pneumotho rax. No abnormal mediastinal or hilar masses or lymphadenopathy seen. No chest wall mass or abnormal axill iary lymphadenopathy. Incidentally noted left superior renal pole 2.8 centimeters cyst. Ill-defined hypoattenuating right l iver lobe lesions, the largest measuring 1.9 centimeter. IMPRESSION: No evidence of acute central pulmonary emboli. No other acute findings in the chest. Incidental findings as above.
[2023-04-14] MEDS ORDERED: ACETAMINOPHEN 325 MG TABLET PO PRN (13:26)
[2023-04-14 15:34] VITALS: BMI 26.0
--- NOTE | 2023-04-14 15:55 | P.HP ---
Certification for Inpatient Patient admitted to: Inpatient With expected LOS: >2 Midnights Patient will require the following post-hospital care: None Practitioner: I am a practitioner with admitting privileges, knowledge of patient current condition, hospital course, and medical plan of care. Services: Services provided to patient in accordance with Admission requirements found in Title 42 Section 412.3 of the Code of Federal Regulations Patient History Date of Service: 04/14/23 Reason for admission: Chest pain and dizziness History of Present Illness: Patient is a 57-year-old male with a past medical history significant for hyperlipidemia, migraine headache who presents with complaint of chest pain and persistent dizziness. Patient reported that he has been having chest pain for quite some time now. Patient stated that chest pain has been intermittent but became worse in the last 3 weeks. Patient also reports dizziness that has been persistent. Patient indicated that chest pain is located in left chest area, rated pain as 9/10 in severity and described pain as stabbing in quality. Patient reported that chest pain radiates to his left shoulder, neck and left arm. Patient reported associated signs and symptoms of shortness of breath with exertion, bilateral hand numbness, weakness and fatigue. Patient denies any other signs or symptoms. Symptoms are aggravated or relieved by nothing. Patient decided to present to the hospital due to worsening symptoms. Of note, patient reported that he was seen at another ER facility and declined admission to the hospital. Allergies sumatriptan Adverse Reaction (Verified 04/14/23 15:40) Shortness of breath Home Medications: Aspirin [Aspirin EC 81 MG] See Rx Instructions .ROUTE .COMPLEX 04/14/23 Atorvastatin Calcium [Lipitor] 40 mg PO BEDTIME 04/14/23 Tamsulosin HCl [Flomax] See Rx Instructions .ROUTE .COMPLEX 04/14/23 Topiramate [Topamax] 100 mg PO BID* 04/14/23 - Past Medical/Surgical History -: BPH -: Hypertension -: Hyperlipidemia -: Migraine headache Past Surgical History: Reviewed- Non-Contributory - Family History Family History: Reviewed- Non-Contributory - Social History Smoking Status: Former smoker Alcohol use: Yes CD- Drugs: No Caffeine use: Yes Place of Residence: Home Review of Systems General: Weakness, Other (Fatigue) Eyes: Unremarkable ENT: Unremarkable Respiratory: Shortness of Breath, SOB with Excertion Cardiovascular: Chest Pain Gastrointestinal: Unremarkable Genitourinary: Unremarkable Musculoskeletal: Neck Pain, Shoulder Pain, Arm Pain Integumentary: Unremarkable Neurological: Weakness, Numbness Lymphatics: Unremarkable Physical Examination - Physical Exam General: Alert, In no apparent distress, Oriented x3, Cooperative HEENT: Atraumatic, PERRLA, Mucous membr. moist/pink, EOMI, Sclerae nonicteric Neck: Supple, 2+ carotid pulse no bruit, No LAD, Without JVD or thyroid abnormality Respiratory: Clear to auscultation bilaterally, Normal air movement Cardiovascular: No edema, Regular rate/rhythm, Normal S1 S2 Capillary refill: <2 Seconds Gastrointestinal: Normal bowel sounds, Non-distended, No tenderness Musculoskeletal: No clubbing, No swelling, No tenderness Integumentary: No rashes, No tenderness/swelling Neurological: Normal gait, Normal speech, Normal strength at 5/5 x4 extr, Normal tone, Normal affect Lymphatics: No axilla or inguinal lymphadenopathy - Studies Laboratory Data (last 24 hrs) 04/14/23 09:55: PT 11.5, INR 1.05 04/14/23 09:55: WBC 3.70 L, Hgb 13.7, Hct 40.2, Plt Count 300 04/14/23 09:55: Sodium 139, Potassium 3.7, BUN 12, Creatinine 1.09, Glucose 107 H, Total Bilirubin 0.4, AST 15, ALT 27, Alkaline Phosphatase 61 Assessment and Plan - Plan --Chest pain. To rule out ACS. CTA PE protocol does not indicate any evidence of PE or acute findings in the chest. Serial troponins negative so far. Echocardiogram pending to assess cardiac structures and function. Cardiology consulted. Telemetry to monitor for any significant arrhythmia. We will await further recommendations from meat grader. --Persistent dizziness. MRI brain does not indicate any acute intracranial abnormality. Neurology consulted. Carotid Doppler to rule out any carotid artery stenosis. We will get some orthostatic vital signs. Will await further recommendations from neurologist. -- CKD 2. Stable. We will continue to monitor renal functions. --Hypertension. Stable. Continue home medications=. --Acute pain. We will manage pain with current pain medication regimen. --History of migraine headache. Continue home medications and Tylenol as needed. --Hyperlipidemia. Continue statin. --BPH. Continue Flomax. --DVT prophylaxis with Lovenox subQ. Discharge Plan: Home Plan to discharge in: Greater than 2 days - Advance Directives Does patient have a Living Will: No Does patient have a Durable POA for Healthcare: No - Code Status/Comfort Care Code Status Assessed: Yes Physician Review: Patient Assessed, Agree with Above Assessment and Plan Critical Care: No
[2023-04-14] MEDS: HYDROCODONE/APAP 5/325 MG TAB PO PRN ×2 (16:43→22:34)
[2023-04-14] MEDS: ENOXAPARIN 40 MG/0.4 ML SQ SCH (16:45)
[2023-04-14 17:13] LABS: Absolute Lymphocytes (CBC) 1.9 K/uL (0.7-4.9); Hematocrit 41.5 % (39.6-49.0); Lymphocytes % 47.5 % (15.3-44.8); MCV 93.3 fL (80-100); MPV 7.8 fL (7.6-11.3); RBC Red Blood Cell Count 4.45 M/uL (4.33-5.43)
[2023-04-14 17:48] LABS: Magnesium 2.2 mg/dL (1.6-2.4); Phosphorus 2.8 mg/dL (2.5-4.9); Thyroid Stimulating Hormone 0.928 uIU/mL (0.358-3.740)
--- NOTE | 2023-04-14 18:19 | RAD REPORT ---
EXAM DESCRIPTION: MRI - Brain Wo Cont - 04/14/2023 5:58 pm CLINICAL HISTORY: Persistent Dizziness, R O CVA Headache, drowsiness, CVA symptomology COMPARISON: Head Brain Wo Cont dated 09/08/2022 TECHNIQUE: Multi-sequence, multiplanar MR imaging of the brain was performed without contrast. FINDINGS: No intracranial hemorrhage, hydrocephalus or extra-axial fluid collections. No edema or sh ift of midline structures. No findings to suspect brain mass. DWI is negative for acute CVA. Midline structures are normally formed. Mastoid air cells and paranasal sinuses are clear. IMPRESSION: No acute or concerning intracranial abnormalities.
[2023-04-14] MEDS: TOPIRAMATE 100 MG TAB PO SCH (22:29)
[2023-04-14] MEDS: ATORVASTATIN 40 MG TAB PO SCH (22:30)
[2023-04-14] MEDS: TAMSULOSIN 0.4 MG SR CAP PO SCH (22:35)
[2023-04-14 23:46] LABS: Specific Gravity > 1.030 (1.005-1.030); Urine Bilirubin NEGATIVE (Negative); Urine Blood Negative (Negative); Urine Clarity Clear (Clear); Urine Color Light-Yellow (Yellow); Urine Glucose NEGATIVE (Negative); Urine Protein NEGATIVE (Negative); Urine Urobilinogen Normal (Normal)
[2023-04-15 04:23] LABS: Albumin 3.4 g/dL (3.4-5.0); Bilirubin Total 0.3 mg/dL (0.2-1.0); Potassium 3.4 mEq/L (3.5-5.1); Protein, Total 7.1 g/dL (6.4-8.2)
[2023-04-15] MEDS: HYDROCODONE/APAP 5/325 MG TAB PO PRN ×2 (04:49→15:53)
[2023-04-15] MEDS ORDERED: NA CHLORIDE 0.9% 1,000 ML IV ONE (05:05)
[2023-04-15] MEDS ORDERED: MAGNESIUM SULFATE 1 gm IVPB 1 GM/100 ML BAG IV ONE (05:05)
[2023-04-15] MEDS ORDERED: DIPHENHYDRAMINE 50 MG/ML VIAL IV ONE (05:05)
[2023-04-15] MEDS ORDERED: METOCLOPRAMIDE 10 MG/2mL INJ IV SCH ×2 (05:06→06:00)
[2023-04-15] MEDS: ASPIRIN 81 MG CHEWABLE TABLET PO SCH (08:08)
[2023-04-15] MEDS: TAMSULOSIN 0.4 MG SR CAP PO SCH (08:09)
[2023-04-15] MEDS: ENOXAPARIN 40 MG/0.4 ML SQ SCH (08:09)
[2023-04-15] MEDS ORDERED: ONDANSETRON 4 MG/2 ML VIAL IV PRN (08:28)
[2023-04-15] MEDS ORDERED: ONDANSETRON 4 MG/2 ML VIAL ONE (08:28)
[2023-04-15] MEDS: TOPIRAMATE 100 MG TAB PO SCH ×2 (09:00→15:55)
[2023-04-15] MEDS ORDERED: POTASSIUM CL SA 10 MEQ TAB PO ONE (09:00)
--- NOTE | 2023-04-15 09:32 | RAD REPORT ---
EXAM DESCRIPTION: - CP - 04/14/2023 11:45 pm CLINICAL HISTORY: Dizziness Headache, drowsiness COMPARISON: Neck Angio dated 09/08/2022 TECHNIQUE: Real-time sonographic evaluation of both carotid systems was performed. Doppler interroga tion was performed with waveform tracing bilaterally. FINDINGS: Normal high resistance waveforms are noted in both external carotid arteries. The common c arotid arteries and internal carotid arteries show normal low resistance waveforms. No significant plaque formation is seen. Peak systolic and end diastolic velocity values and the ICA/ CCA ratios are in the non-hemodynamically significant range. Antegrade flow seen in both vertebral arteries. IMPRESSION: No significant atherosclerotic changes noted. No evidence of a hemodynamically significant stenosis.
[2023-04-15] MEDS ORDERED: METOCLOPRAMIDE 10 MG/2mL INJ IV PRN (10:43)
[2023-04-15] MEDS ORDERED: KETOROLAC 30 MG/ML INJ IV ONE (10:43)
--- NOTE | 2023-04-15 11:48 | EKG ---
Test Date: 2023-04-14 Test Time: 09:57:16 Scrap Piler: VALERIY MEASUREMENT RESULTS: Intervals: Rate: 85 MA: 166 QRSD: 74 QT: 378 QTc: 449 Leonard: P: 68 MA: 166 QRS: 74 T: 58 INTERPRETIVE STATEMENTS: Normal sinus rhythm Normal ECG Compared to ECG 09/08/2022 16:46:34 Sinus bradycardia no longer present Electronically Signed On 04-15-23 11:44:57 CDT by Jonh Angel
--- NOTE | 2023-04-15 13:52 | ECHO ---
HEIGHT: 5 ft 8 in WEIGHT: 171 lb 3.2 oz DATE OF STUDY: 04/15/[address]: Carmen Chacko 2-DIMENSIONAL: YES M.MODE: YES DOPPLER: YES COLOR FLOW: YES TDS: NO PORTABLE: YES DEFINITY: NO BUBBLE STUDY: NO DIAGNOSIS: CHEST PAIN CARDIAC HISTORY: CATHERIZATION: SURGERY: PROSTHETIC VALVE: PACEMAKER: MEASUREMENTS (cm) DIASTOLIC (NORMALS) SYSTOLIC (NORMALS) IVSd 1.1 (0.6-1.2) LA Diam 3.4 (1.9-4.0) LVEF 68% LVIDd 4.2 (3.5-5.7) LVIDs 2.6 (2.0-3.5) %FS 37% LVPWd 1.1 (0.6-1.2) Ao Diam 3.1 (2.0-3.7) 2 DIMENSIONAL ASSESSMENT: RIGHT ATRIUM: NORMAL LEFT ATRIUM: NORMAL RIGHT VENTRICLE: NORMAL LEFT VENTRICLE: NORMAL TRICUSPID VALVE: NORMAL MITRAL VALVE: NORMAL PULMONIC VALVE: NORMAL AORTIC VALVE: NORMAL PERICARDIAL EFFUSION: NONE AORTIC ROOT: NORMAL LEFT VENTRICULAR WALL MOTION: NORMAL. DOPPLER/COLOR FLOW: NORMAL. COMMENTS: NORMAL 2D ECHO WITH DOPPLER. NO WALL MOTION ABNORMALITY NO EFFUSION TECHNOLOGIST: DENIA THOMPSON
--- NOTE | 2023-04-15 14:12 | P.PN ---
Subjective Date of Service: 04/15/23 Chief Complaint: Chest pain and dizziness Patient is complaining of migraine headache, nausea and vomiting. He has not been able to hold any food or water in today. He denies any chest pain or abdominal pain. He is still reporting dizziness. Physical Examination - Vital Signs Temperature: 98.9 F Blood Pressure: 97/67 Pulse: 64 Respirations: 16 Pulse Ox (%): 97 Assessment And Plan - Plan Physical Exam General: Alert, In no apparent distress, Oriented x3, Cooperative HEENT: Atraumatic, PERRLA, Mucous membr. moist/pink, EOMI. Neck: Supple, 2+ carotid pulse no bruit, No LAD, Without JVD or thyroid a bnormality Respiratory: Clear to auscultation bilaterally, Normal air movement Cardiovascular: No edema, Regular rate/rhythm, Normal S1 S2 Gastrointestinal: Normal bowel sounds, Non-distended, No tenderness Musculoskeletal: No clubbing, No swelling, No tenderness Integumentary: No rashes, No tenderness/swelling Neurological: Normal gait, Normal speech, Normal strength at 5/5 x4 extr, Normal tone, Normal affect Plan: Chest pain Migraine Intractable nausea and vomiting Hyperlipidemia Chest pain Atypical chest pain. Troponin trended negative ACS ruled out. Migraine/intractable nausea and vomiting Nausea and vomiting likely related to migraine No response to IV Reglan Allergy to sumatriptan noted. Trial of IV Toradol. IV Reglan every 6 hours Continue Topamax. Dizziness Soft blood pressure. Negative orthostatic vitals. MRI of the brain: No acute disease Carotid Dopplers unremarkable. Acute CVA ruled out. Symptomatic management. BPH Continue floor DVT prophylaxis: Lovenox
[2023-04-15] MEDS ORDERED: KETOROLAC 30 MG/ML INJ IV PRN (17:52)
[2023-04-15] MEDS: HYDROMORPHONE HCL 1 MG/ML INJ IV PRN (18:15)
[2023-04-15] MEDS: METOCLOPRAMIDE 10 MG/2mL INJ IV SCH (18:15)
--- NOTE | 2023-04-15 20:10 | CON ---
Date of Consultation: 04/15/2023 Admitted with migraine headache, dizziness, atypical chest pain. Admitted to Dr. Vu on 3. I saw the patient 04/15/2023. History Of Present Illness: Mr. Crespo is 57. No previous cardiac history except for dyslipidemia. Came in with severe dizziness, atypical chest pain, severe migraine headache, nausea, vomiting. Has had a negative cardiac workup including MRI, which was negative. Chest x-ray was negative. CTA was negative. Carotids were negative. Echocardiogram is pending. Orthostatic pressures are pending. Neurology consultation is pending. No cardiac symptoms. His chest pain is very atypical, left-sided , sharp, pleuritic and stabbing. Past Medical History: As stated above. Allergies: HE IS ALLERGIC TO SUMATRIPTAN. Medications: At home include aspirin, Lipitor, Flomax, and Topamax. Review of Systems: Negative. Social History: Negative. Family History: Negative. Physical Examination: General: Which was done by Dr. Vu. The patient is very agitated when I saw him. He was having severe nausea and vomiting. Vital Signs: Stable. He was afebrile with sinus tach. HEENT: Appeared negative. Rest of examination by Dr. Vu showed a clear chest, normal cardiac exam, normal abdomen, normal n eurological exam. Extremities showed no edema. Diagnostic Data: All normal. Impression And Plan: 1.Atypical chest pain. Outpatient MPI will be performed down the road. 2.Vertigo, migraine headaches, dyslipidemia. Negative neurological workup so far. Orthostatic pres sures are normal. Neurologic consultation is pending. Echocardiogram is pending. Continue present regimen. We will continue to follow. BILLIE/JO Voice ID: [id number] Report ID: [id number]
[2023-04-15] MEDS: ATORVASTATIN 40 MG TAB PO SCH (21:29)
[2023-04-16] MEDS: METOCLOPRAMIDE 10 MG/2mL INJ IV SCH ×2 (00:08→07:03)
[2023-04-16 05:10] LABS: Absolute Lymphocytes (CBC) 1.8 K/uL (0.7-4.9); Hematocrit 36.1 % (39.6-49.0); Lymphocytes % 28.9 % (15.3-44.8); MCV 92.5 fL (80-100); MPV 7.9 fL (7.6-11.3); RBC Red Blood Cell Count 3.91 M/uL (4.33-5.43)
[2023-04-16 05:24] LABS: Potassium 3.7 mEq/L (3.5-5.1)
[2023-04-16] MEDS: HYDROMORPHONE HCL 1 MG/ML INJ IV PRN (07:05)
[2023-04-16] MEDS ORDERED: POTASSIUM CL SA 10 MEQ TAB PO ONE (07:53)
[2023-04-16] MEDS: TAMSULOSIN 0.4 MG SR CAP PO SCH (08:34)
[2023-04-16] MEDS: TOPIRAMATE 100 MG TAB PO SCH (08:34)
[2023-04-16] MEDS: ENOXAPARIN 40 MG/0.4 ML SQ SCH (08:35)
[2023-04-16] MEDS: ASPIRIN 81 MG CHEWABLE TABLET PO SCH (08:35)
--- NOTE | 2023-04-16 13:22 | PN ---
The patient was admitted with chest pain migraine. So far, he had an echo that was normal and caroti d that was normal. On neurological workup including CT of the head, MRI and MRA were all normal. Lutz s done well from a migraine standpoint and has improved. No further chest pain. Telemetry remains n ormal. We will sign off his case. I will set him up for an outpatient MPI. BILLIE/JO Voice ID: [id number] Report ID: [id number]
[2023-04-16 14:40] VITALS: O2SAT 97
[2023-04-16 16:25] VITALS: BP 111/76; TEMP 99.3
--- NOTE | 2023-04-16 16:43 | P.DS ---
Admission Date: 04/14/23 Discharge Date: 04/16/23 Disposition: ROUTINE DISCHARGE Discharge Condition: FAIR Reason for Admission: Chest pain and dizziness Brief History of Present Illness: Patient is a 57-year-old male with a past medical history significant for hyperlipidemia, migraine headache who presented with complaint of chest pain and persistent dizziness. Patient reported chest pain for quite some time. Patient stated that chest pain has been intermittent but became worse in the last 3 weeks. Patient also reported dizziness. Patient reported associated signs and symptoms of shortness of breath with exertion, bilateral hand numbness, weakness and fatigue. Initial troponin in the ED was negative of note. Other work-up unremarkable. Patient was hospitalized for further management. Hospital Course: Diagnosis Chest pain Migraine Intractable nausea and vomiting Hyperlipidemia. Patient admitted to the medical floor and the following medical problems addressed: Chest pain Atypical chest pain. Troponin trended negative ACS ruled out. Seen and evaluated by cardiology-Dr. Angel. Dr. Angel recommend to continue work-up as outpatient. Migraine/intractable nausea and vomiting Nausea and vomiting likely related to migraine Allergy to sumatriptan noted. Migraine managed with IV Toradol, IV hydromorphone and IV Reglan Continued home dose Topamax. Patient stated Excedrin helps his migraine. Nausea and vomiting has resolved. Patient has been tolerating diet and requested to go home. He is prescribed Excedrin to continue treatment for his migraine headaches Dizziness Soft blood pressure. Negative orthostatic vitals. MRI of the brain: No acute disease Carotid Dopplers unremarkable. Acute CVA ruled out. Patient's dizziness significantly improved BPH Continued Flomax. Vital Signs/Physical Exam: Temp Pulse Resp BP Pulse Ox 99.3 F 70 20 111/76 100 04/16/23 16:00 04/16/23 16:00 04/16/23 16:00 04/16/23 16:04/16/23 16:00 General: Alert, In no apparent distress, Oriented x3 HEENT: Mucous membr. moist/pink Neck: Supple, JVD not distended Respiratory: Clear to auscultation bilaterally, Normal air movement Cardiovascular: No edema, Regular rate/rhythm, Normal S1 S2 Gastrointestinal: Normal bowel sounds, Soft and benign, Non-distended, No tenderness Musculoskeletal: No swelling Integumentary: No rashes, No cyanosis Neurological: Normal strength at 5/5 x4 extr Laboratory Data at Discharge: WBC 6.10 thou/uL (4.3-10.9) 04/16/23 04:41 Hgb 12.2 g/dL (13.6-17.9) L 04/16/23 04:41 Hct 36.1 % (39.6-49.0) L 04/16/23 04:41 Plt Count 289 thou/uL (152-406) 04/16/23 04:41 PT 11.5 SECONDS (9.5-12.5) 04/14/23 09:55 INR 1.05 04/14/23 09:55 Sodium 138 mEq/L (136-145) 04/16/23 04:41 Potassium 3.7 mEq/L (3.5-5.1) 04/16/23 04:41 BUN 18 mg/dL (7-18) 04/16/23 04:41 Creatinine 0.98 mg/dL (0.70-1.30) 04/16/23 04:41 Glucose 98 mg/dL (74-106) 04/16/23 04:41 Phosphorus 2.8 mg/dL (2.5-4.9) 04/14/23 16:53 Magnesium 2.2 mg/dL (1.6-2.4) 04/14/23 16:53 Total Bilirubin 0.3 mg/dL (0.2-1.0) 04/15/23 02:52 AST 14 U/L (15-37) L 04/15/23 02:52 ALT 22 U/L (16-61) 04/15/23 02:52 Alkaline Phosphatase 59 U/L (45-117) 04/15/23 02:52 Home Medications: Aspirin [Aspirin EC 81 MG] See Rx Instructions .ROUTE .COMPLEX 04/14/23 Atorvastatin Calcium [Lipitor] 40 mg PO BEDTIME 04/14/23 Tamsulosin HCl [Flomax] See Rx Instructions .ROUTE .COMPLEX 04/14/23 Topiramate [Topamax*] 100 mg PO BID* 04/14/23 Aspirin/Acetaminophen/Caffeine [Excedrin Migraine Caplet] 2 each PO DAILY PRN #14 tab 04/16/23 Metoclopramide HCl [Reglan] 10 mg PO Q6H PRN #30 tab 04/16/23 New Medications: Aspirin/Acetaminophen/Caffeine [Excedrin Migraine Caplet] 2 each PO DAILY PRN #14 tab PRN Reason: headache Metoclopramide HCl [Reglan] 10 mg PO Q6H PRN #30 tab PRN Reason: Nausea / Vomiting Diet: AHA Activity: Ad david Followup: Jonh Angel MD [ACTIVE - CAN ADMIT] - 1-2 Weeks Pro Carrizales DO [Primary Care Provider] - 1-2 Weeks Time spent managing pt's care (in minutes): 34
== END 2023-04-16 17:28 | disposition home or self-care (01) | DRG 313 ==
LOC: ER 09:27 → ERHOLD 13:25 → 2ND 15:00
PROVIDERS: ADMIT Internal Medicine; ATTEND Internal Medicine
DX: R07.89 Other chest pain (principal); I12.9 Hypertensive chronic kidney disease with stage 1 through stage 4 chronic kidney disease, or unspecified chronic kidney disease; N18.2 Chronic kidney disease, stage 2 (mild); N40.0 Benign prostatic hyperplasia without lower urinary tract symptoms; E78.5 Hyperlipidemia, unspecified; G43.909 Migraine, unspecified, not intractable, without status migrainosus; R42 Dizziness and giddiness; Z88.8 Allergy status to other drugs, medicaments and biological substances; Z79.82 Long term (current) use of aspirin; Z87.891 Personal history of nicotine dependence; Z79.899 Other long term (current) drug therapy
CPT/HCPCS: 36415; 70551; 71045; 71275; 80048; 80053; 80076; 81003; 83036; 83735; 83880; 84100; 84439; 84443; 84484; 85025; 85610; 93005; 93306; 93880; 94760; 99285; J1170; J1200; J1650; J2405; J2765; J3475; J7030; Q9967

== ENCOUNTER 2024-08-24 12:50 | Emergency (ER) | payer SELFPAY ==
[2024-08-24] MEDS ORDERED: NA CHLORIDE 0.9% 1,000 ML ONE (13:30)
[2024-08-24 13:41] LABS: Absolute Eosinophils 0.1 K/uL (0-0.5); Absolute Lymphocytes (CBC) 1.6 K/uL (0.7-4.9); Absolute Monocytes 0.3 K/uL (0.1-1.3); Absolute Neutrophil 1.5 K/uL (1.8-8.0); Basophils % 0.5 % (0-1.3); Eosinophils % 2.5 % (0-4.4); Hematocrit 39.7 % (39.6-49.0); Hemoglobin 13.2 g/dL (13.6-17.9); Lymphocytes % 45.1 % (15.3-44.8); MCH 31.1 pg (27.0-35.0); MCHC 33.2 g/dL (32.0-36.0); MCV 93.6 fL (80-100); MPV 7.9 fL (7.6-11.3); Monocytes % 9.9 % (3.3-12.3); Platelets 264 thou/uL (152-406); RBC Red Blood Cell Count 4.25 M/uL (4.33-5.43); Red Cell Distribution Width 13.7 % (12.1-15.2)
[2024-08-24 13:59] LABS: Albumin 3.6 g/dL (3.4-5.0); Anion Gap 9.6 mEq/L (5.0-15.0); Bilirubin Total 0.5 mg/dL (0.2-1.0); Globulin 3.6 g/dL (2.3-3.5); Potassium 3.6 mEq/L (3.5-5.1); Protein, Total 7.2 g/dL (6.4-8.2)
--- NOTE | 2024-08-24 14:20 | RAD REPORT ---
EXAMINATION: Abdomen Pelvis Wo Contrast CLINICAL INDICATION: Male, 58 years old. FLANK PAIN TECHNIQUE: CT abdomen and pelvis was performed, without IV contrast, as per department protocol. Axia l, sagittal and coronal reconstructions were obtained. One or more of the following dose reduction techniques were used: Automated exposure control, adjustment of the mA and kV according to the patien t size, and iterative reconstruction. Unless otherwise specified, incidental findings do not require dedicated imaging follow-up. COMPARISON: No prior exam. FINDINGS: The lack of intravenous contrast limits the sensitivity of this exam for evaluation of solid visceral organs, vascular structures, and retroperitoneum. LOWER CHEST: The visualized lung bases are clear. LIVER: Normal in size and contour. No focal lesion. BILIARY SYSTEM: No suspicious abnormalities. SPLEEN: Normal size. No focal lesion. PANCREAS: No mass, ductal dilation, or arjun-pancreatic fluid. ADRENALS: Normal; no mass. KIDNEYS AND URETERS: Normal size and contour. No hydronephrosis. Punctate 1 mm nonobstructing calcul us or gravel in the right lower renal pole.Numerous left renal cortical fluid density lesions largest of the superior pole measuring 2.5 cm URINARY BLADDER: Suboptimally distended limiting evaluation. Diffuse wall thickening, nonspecific. No suggestion of a focal mass or radiopaque calculi within limits of noncontrast evaluation. GASTROINTESTINAL TRACT: No evidence of bowel obstruction, significant free fluid, free air or abscess . APPENDIX: Normal appendix. LYMPH NODES: No lymphadenopathy. MUSCULOSKELETAL: No acute or suspicious osseous abnormality. ADDITIONAL FINDINGS: None. IMPRESSION: Suboptimal bladder distention which limits evaluation, however there is some diffuse bladder wall thi ckening which is nonspecific. This could relate to infectious or inflammatory cystitis in the appropriate clinical setting. Punctate 1 mm nonobstructing calculus or gravel in the right lower renal pole. No other acute or concerning abnormalities in the abdomen or pelvis, with evaluation limited by lack of IV contrast.
[2024-08-24 15:11] LABS: Sqamous Epithelial None Seen /HPF (None Seen); Urine Bacteria None Seen /HPF (<20); Urine Bilirubin NEGATIVE (Negative); Urine Blood Negative (Negative); Urine Clarity Extremely Turbid (Clear); Urine Color Light-Yellow (Yellow); Urine Culture Reflex Order NOT NEEDED; Urine Glucose NEGATIVE (Negative); Urine Ketones NEGATIVE (Negative); Urine Micro Reflex YN NO BILL MICROSCOPIC; Urine Mucus Slight /HPF (None Seen); Urine Nitrite NEGATIVE (Negative); Urine Protein NEGATIVE (Negative); Urine RBC <5 /HPF (None Seen); Urine Urobilinogen Normal (Normal); Urine WBC <5 /HPF (<5); Urine pH 7.5 (5.0-7.0)
--- NOTE | 2024-08-24 15:31 | ER ---
Nurse's Notes [facility] Name: Beningo Crespo Age: 58 yrs Sex: Male : 1965 Arrival Date: 08/24/2024 Time: 12:50 Bed 18 Private MD: Diagnosis: Calculus of kidney Presentation: 08/24 13:12 Chief complaint: Patient states: RIGHT FLANK PAIN POSSIBLE KIDNEY STONE STARTED db YESTERDAY. PAIN WON'T GO AWAY. Coronavirus screen: Client denies travel out of the [place] in the last 14 days. At this time, the client does not indicate any symptoms associated with coronavirus-19. Ebola Screen: Patient negative for fever greater than or equal to 101.5 degrees Fahrenheit, and additional compatible Ebola Virus Disease symptoms Patient denies exposure to infectious person. Patient denies travel to an Ebola-affected area in the 21 days before illness onset. No symptoms or risks identified at this time. Initial Sepsis Screen: Does the patient meet any 2 criteria? No. Patient's initial sepsis screen is negative. Does the patient have a suspected source of infection? No. Patient's initial sepsis screen is negative. Risk Assessment: Do you want to hurt yourself or someone else? Patient reports no desire to harm self or others. Onset of symptoms was August 24, 2024. 13:12 Method Of Arrival: Ambulatory db 13:12 Acuity: JD 3 db Triage Assessment: 13:14 General: Appears in no apparent distress. comfortable, Behavior is calm, cooperative, db appropriate for age. Pain: Complains of pain in back. Neuro: Level of Consciousness is awake, alert, obeys commands, Oriented to person, place, time, situation. Respiratory: Airway is patent Respiratory effort is even, unlabored, Respiratory pattern is regular, symmetrical. GI: Abdomen is flat, non-distended. : Reports burning with urination, RIGHT FLANK PAIN. Historical: - Allergies: 13:14 SUMATRIPTAN; db - PMHx: 13:14 PROSTATE CANCER; Hyperlipidemia; Migraines; db - PSHx: 13:14 PROSTATE SURGERY; db - Immunization history:: Adult Immunizations unknown. - Infectious Disease History:: Denies. - Social history:: Smoking status: Patient/guardian denies using tobacco, the patient reports quitting approximately 1 years ago. Screenin:[facility] Fall Risk Assessment (Adult) History of falling in the last 3 months, iw including since admission No falls in past 3 months (0 pts) Confusion or Disorientation No (0 pts) Intoxicated or Sedated No (0 pts) Impaired Gait No (0 pts) Mobility Assist Device Used No (0 pt) Altered Elimination No (0 pt) Score/Fall Risk Level 0 - 2 = Low Risk Oriented to surroundings, Maintained a safe environment. Abuse screen: Denies threats or abuse. Nutritional screening: No deficits noted. Tuberculosis screening: No symptoms or risk factors identified. Assessment: 13:32 General: Appears in no apparent distress. Behavior is calm, cooperative. Pain: iw Complains of pain in anterior aspect of right lateral abdomen and posterior aspect of right lateral abdomen Pain currently is 2 out of 10 on a pain scale. Neuro: Level of Consciousness is awake, alert, obeys commands, Oriented to person, place, time, situation, Moves all extremities. Full function. Cardiovascular: Patient's skin is warm and dry. Respiratory: Airway is patent Respiratory effort is even, unlabored. GI: Abd is soft X 4 quads. : Reports pain in right flank(s). 15:50 Reassessment: Patient appears in no apparent distress at this time. No changes from cm10 previously documented assessment. Patient and/or family updated on plan of care and expected duration. Pain level reassessed. Patient is alert, oriented x 3, equal unlabored respirations, skin warm/dry/pink. Vital Signs: 13:12 BP 111 / 88; Pulse 77; Resp 16; Temp 98.8(O); Pulse Ox 98% ; Weight 72.57 kg; Height 5 db ft. 8 in. ; 13:39 Weight 73 kg (M); cm10 15:50 BP 121 / 88; Pulse 66; Resp 16; Pulse Ox 100% on R/A; cm10 13:12 Body Mass Index 24.33 (73.00 kg, 172.72 cm) db ED Course: 12:53 Patient arrived in ED. im 12:56 Andrea Valladares MD is Attending Physician. ec2 13:14 Triage completed. db 13:14 Arm band placed on Patient placed in an exam room. db 13:22 Marlene Chavez, RN is Primary Nurse. iw 13:32 Initial lab(s) drawn, by me, sent to lab. Inserted saline lock: 20 gauge in right iw antecubital area, using aseptic technique. Blood collected. Flushed with 10 mL NS. 13:[address] via wheelchair. cm10 13:44 CT Abd/Pelvis - Without Contrast In Process Unspecified. EDMS 15:51 Patient has correct armband on for positive identification. Provided Education on: cm10 Follow-up instructions. 15:51 No provider procedures requiring assistance completed. IV discontinued, intact, cm10 bleeding controlled, No redness/swelling at site. Pressure dressing applied. Administered Medications: 13:34 Not Given (Patient Refused): morphineor iv 4 mg IVP once over 4 mins iw 13:36 Drug: NS 0.9% IV 1000 ml IV at 1 bolus Per protocol; 1000 mL bolus Route: IV; Rate: 1 cm10 bolus; Site: right antecubital; 15:50 Follow up: Response: No adverse reaction; IV Status: Completed infusion; IV Intake: cm10 300ml 15:51 Not Given (Patient Refused): ondansetron 4 mg IVP once; over 2 minutes cm10 Medication: 13:33 VIS not applicable for this client. iw Intake: 15:50 IV: 300ml; Total: 300ml. cm10 Outcome: 15:31 Discharge ordered by . ec2 15:51 Discharged to home ambulatory, cm10 15:51 Condition: good 15:51 Discharge instructions given to patient, Instructed on discharge instructions, follow up and referral plans. medication usage, Demonstrated understanding of instructions, follow-up care, medications, Prescriptions given X 2, 15:51 Patient left the ED. cm10 Signatures: Dispatcher [employer] Marlene Gonzales RN RN iw Benton, Danielle RN Ira Ellsworth Clarissa, RN RN cm10 Andrea Valladares MD MD ec2
--- NOTE | 2024-08-24 15:31 | EDPHYS ---
Physician Documentation [facility] Name: Benigno Crespo Age: 58 yrs Sex: Male : 1965 Arrival Date: 08/24/2024 Time: 12:50 Bed 18 Private MD: ED Physician Andrea Valladares HPI: 08/24 14:15 This 58 yrs old Black Male presents to ER via Ambulatory with complaints of Possible ec2 Kidney Stone, Flank Pain. 14:15 Patient arrives today for evaluation of right flank pain. Onset yesterday. History of ec2 kidney stones.. Historical: - Allergies: 13:14 SUMATRIPTAN; db - PMHx: 13:14 PROSTATE CANCER; Hyperlipidemia; Migraines; db - PSHx: 13:14 PROSTATE SURGERY; db - Immunization history:: Adult Immunizations unknown. - Infectious Disease History:: Denies. - Social history:: Smoking status: Patient/guardian denies using tobacco, the patient reports quitting approximately 1 years ago. ROS: 14:15 Constitutional: as per hpi ec2 Exam: 14:15 Constitutional: GEN: NAD Head: atraumatic Eyes: EOMI Ears: External ears are ec2 normal. CV: regular rate LUNGS: no respiratory distress ABD: non-distended, tender in the right flank. SKIN: no evidence of rashes MSK: no evidence of trauma Vital Signs: 13:12 BP 111 / 88; Pulse 77; Resp 16; Temp 98.8(O); Pulse Ox 98% ; Weight 72.57 kg; Height 5 db ft. 8 in. ; 13:39 Weight 73 kg (M); cm10 15:50 BP 121 / 88; Pulse 66; Resp 16; Pulse Ox 100% on R/A; cm10 13:12 Body Mass Index 24.33 (73.00 kg, 172.72 cm) db MDM: 12:56 Patient medically screened. ec2 14:15 Data reviewed: vital signs. ED course: Patient arrives today for right flank pain. ec2 Examination remarkable for abdominal findings as above. Will obtain lab work, CT imaging, treat the patient's pain. Differential includes ureteral stone, UTI, pyelonephritis, appendicitis. . 14:20 ED course: CBC shows slight leukopenia. Metabolic profile reassuring. Lipase within ec2 normal ranges. Pending urine studies and CT imaging. . 15:31 ED course: Urine noninfectious appearing. CT imaging shows 1 mm nonobstructing right ec2 lower renal pole calculus. Will discharge home have the patient follow-up with urology. Return precautions given . 08/24 12:56 Order name: CBC with Diff; Complete Time: 14:19 ec2 08/24 12:56 Order name: CMP; Complete Time: 14:19 ec2 08/24 12:56 Order name: Lipase; Complete Time: 14:19 ec2 08/24 14:19 Order name: UAM; Complete Time: 15:30 ec2 08/24 12:56 Order name: CT Abd/Pelvis - Without Contrast; Complete Time: 14:32 ec2 08/24 12:56 Order name: IV Saline Lock; Complete Time: 13:27 ec2 08/24 12:56 Order name: Labs collected and sent; Complete Time: 13:27 ec2 Administered Medications: 13:34 Not Given (Patient Refused): morphineor iv 4 mg IVP once over 4 mins iw 13:36 Drug: NS 0.9% IV 1000 ml IV at 1 bolus Per protocol; 1000 mL bolus Route: IV; Rate: 1 cm10 bolus; Site: right antecubital; 15:50 Follow up: Response: No adverse reaction; IV Status: Completed infusion; IV Intake: cm10 300ml 15:51 Not Given (Patient Refused): ondansetron 4 mg IVP once; over 2 minutes cm10 Disposition Summary: 08/24/24 15:31 Discharge Ordered Notes: Location: Home ec2 Condition: Stable ec2 Diagnosis - Calculus of kidney ec2 Followup: ec2 - With: Private Physician - When: - Reason: Re-evaluation by your physician Discharge Instructions: - Discharge Summary Sheet ec2 - Kidney Stones ec2 Forms: - Work release form cm10 - Medication Reconciliation Form ec2 - Antibiotic Education ec2 - Prescription Opioid Use ec2 - Patient Portal Instructions ec2 - Leadership Thank You Letter ec2 Prescriptions: - acetaminophen-codeine 300-15 mg Oral tablet - take 1 tablet ORAL route every 4 hours as needed for pain; 10 tablet; Refills: ec2 0, Product Selection Permitted - tamsulosin 0.4 mg Oral capsule - take 1 capsule ORAL route every 24 hours; 14 capsule; Refills: 0, Product ec2 Selection Permitted Signatures: Dispatcher [employer] EDMS Stacey Herron, RN RN db Sandra Robles RN RN cm10 Andrea Valladares MD MD ec2 Marlene Chavez RN iw Corrections: (The following items were deleted from the chart) 12:57 12:57 CBC+H.LAB.BRZ ordered. EDMS EDMS 12:57 12:57 COMPREHENSIVE METABOLIC PANEL+C.LAB.BRZ ordered. EDMS EDMS 12:57 12:57 LIPASE+C.LAB.BRZ ordered. EDMS EDMS 12:57 12:57 Abdomen Pelvis Wo Con+CT.RAD.BRZ ordered. EDMS EDMS
== END 2024-08-24 15:51 | disposition home or self-care (01) ==
LOC: ER 12:50
DX: N20.0 Calculus of kidney (principal); Z87.442 Personal history of urinary calculi
CPT/HCPCS: 36415; 74176; 80053; 81001; 83690; 85025; 96360; 96361; 99285; J7030

== ENCOUNTER 2024-09-28 18:29 | Emergency (ER) | payer OTHER, SELFPAY ==
[2024-09-28] MEDS ORDERED: dexAMETHasone 10 MG/ML VIAL ONE (21:15)
[2024-09-28] MEDS ORDERED: METOCLOPRAMIDE 10 MG/2mL INJ ONE (21:15)
[2024-09-28] MEDS ORDERED: KETOROLAC 30 MG/ML INJ ONE (21:15)
[2024-09-28] MEDS ORDERED: DIPHENHYDRAMINE 50 MG/ML VIAL ONE (21:15)
[2024-09-28] MEDS ORDERED: NA CHLORIDE 0.9% 1,000 ML ONE (21:16)
--- NOTE | 2024-09-28 21:48 | EDPHYS ---
Physician Documentation [facility] Name: Benigno Crespo Age: 59 yrs Sex: Male : 1965 Arrival Date: 09/28/2024 Time: 18:29 Bed 25 Private MD: ED Physician Sweetie Mckeon HPI: 09/28 19:04 This 59 yrs old Black Male presents to ER via Unassigned with complaints of Migraine kb [id number]. 19:04 Pt is a 59 year old male with a history of migraines that presents for a migraine that kb started one month ago. Denies nausea, vomiting. Reports slight photophobia. . Historical: - Allergies: 19:06 SUMATRIPTAN; cm10 - PMHx: 19:06 Hyperlipidemia; Migraines; Prostate Cancer; cm10 - PSHx: 19:06 Prostate surgery; cm10 - Immunization history:: Adult Immunizations up to date. - Infectious Disease History:: Denies. - Social history:: Smoking status: unknown. ROS: 19:04 Constitutional: As per HPI kb Exam: 19:04 Constitutional: This is a well developed, well nourished patient who is awake, alert, kb and in no acute distress. Head/Face: Normocephalic, atraumatic. Eyes: Pupils equal round and reactive to light, extra-ocular motions intact. Lids and lashes normal. Conjunctiva and sclera are non-icteric and not injected. Cornea within normal limits. Periorbital areas with no swelling, redness, or edema. ENT: Moist Mucous membranes Cardiovascular: Regular rate Respiratory: Respirations even and unlabored. No increased work of breathing. Talking in full sentences Skin: Warm, dry with normal turgor. Normal color. MS/ Extremity: Pulses equal, no cyanosis. Neurovascular intact. Full, normal range of motion. Neuro: Awake and alert, GCS 15, oriented to person, place, time, and situation. Vital Signs: 19:04 BP 108 / 82; Pulse 69; Resp 18; Temp 97.7(TE); Pulse Ox 100% ; Weight 76.2 kg; Height 5 cm10 ft. 8 in. ; Pain 7/10; 21:38 BP 112 / 79; Pulse 64; Resp 16; Pulse Ox 100% on R/A; jb4 19:04 Body Mass Index 25.54 (76.20 kg, 172.72 cm) cm10 19:04 Pain Scale: Adult cm10 MDM: 18:47 Medical Screening Exam initiated kb 19:05 Data reviewed: vital signs, nurses notes. kb 21:47 Differential diagnosis: migraine, cluster headache, tension headache. Counseling: I had kb a detailed discussion with the patient and/or guardian regarding the historical points, exam findings, and any diagnostic results supporting the discharge/admit diagnosis, the need for outpatient follow up, a family practitioner, to return to the emergency department if symptoms worsen or persist or if there are any questions or concerns that arise at home. Response to treatment: the patient's symptoms have resolved after treatment. 09/28 19:07 Order name: IV Start; Complete Time: 20:55 kb Administered Medications: 21:24 Drug: NS 0.9% IV 1000 ml IV at 1000 ml once; to be given as a bolus over 60 minutes jb4 Route: IV; Rate: 1000 ml; Site: right antecubital; 22:00 Follow up: Response: No adverse reaction; IV Status: Order to discontinue infusion; jb4 Order to discontinue infusion, pt does not to wish to finish IV infusion.; IV Intake: 500ml 21:24 Drug: metoCLOPramide IVP 10 mg IVP once; over 1 to 2 minutes Route: IVP; Site: right jb4 antecubital; 21:59 Follow up: Response: No adverse reaction; Marked relief of symptoms jb4 21:24 Drug: Ketorolac IVP 15 mg IVP once Route: IVP; Site: right antecubital; jb4 21:59 Follow up: Response: No adverse reaction; Marked relief of symptoms jb4 21:24 Drug: diphenhydrAMINE IVP 12.5 mg IVP once Route: IVP; Site: right antecubital; jb4 21:59 Follow up: Response: No adverse reaction; Marked relief of symptoms jb4 21:24 Drug: Decadron - Dexamethasone IVP 10 mg IVP once Route: IVP; Site: right antecubital; jb4 21:59 Follow up: Response: No adverse reaction; Marked relief of symptoms jb4 Disposition: 20:10 Co-signature as Attending Physician, Sweetie Mckeon I agree with the assessment ci and plan of care. I reviewed the patient's care provided by the Advanced Practice Provider and agree with the diagnosis and treatment plan. Disposition Summary: 09/28/24 21:47 Discharge Ordered Notes: Location: Home kb Condition: Stable kb Diagnosis - Migraine without aura, not intractable kb Followup: kb - With: Emergency Department - When: As needed - Reason: Worsening of condition Followup: kb - With: Private Physician - When: 2 - 3 days - Reason: Recheck today's complaints, Continuance of care, Re-evaluation by your physician Discharge Instructions: - Discharge Summary Sheet kb - Migraine Headache, [id number] kb Forms: - Work release form kb - Medication Reconciliation Form kb - Antibiotic Education kb - Prescription Opioid Use kb - Patient Portal Instructions kb - Leadership Thank You Letter kb Signatures: [place] Gu FNP-C FNP-Corona Quick, RN RN jb4 Sandra Robles RN RN cm10 Sweetie Mckeon
--- NOTE | 2024-09-28 21:48 | ER ---
Nurse's Notes [facility] Name: Benigno Crespo Age: 59 yrs Sex: Male : 1965 Arrival Date: 09/28/2024 Time: 18:29 Bed 25 Private MD: Diagnosis: Migraine without aura, not intractable Presentation: 09/28 19:04 Chief complaint: Patient states: Migraine X1 month. PT reports that the pain is cm10 constant and has some photophobia. Coronavirus screen: Client denies travel out of the [place] in the last 14 days. Ebola Screen: Patient denies travel to an Ebola-affected area in the 21 days before illness onset. No symptoms or risks identified at this time. Initial Sepsis Screen: Does the patient meet any 2 criteria? No. Patient's initial sepsis screen is negative. Does the patient have a suspected source of infection? No. Patient's initial sepsis screen is negative. Risk Assessment: Do you want to hurt yourself or someone else? Patient reports no desire to harm self or others. Onset of symptoms was September 28, 2024. 19:04 Method Of Arrival: Ambulatory cm10 19:04 Acuity: JD 3 cm10 Triage Assessment: 19:06 General: Appears in no apparent distress. uncomfortable, Behavior is calm, cooperative. cm10 Neuro: No deficits noted. Level of Consciousness is awake, alert, obeys commands, Oriented to person, place, time, situation, Appropriate for age Reports headache. Respiratory: No deficits noted. Airway is patent Respiratory effort is even, unlabored, Respiratory pattern is regular, symmetrical. Historical: - Allergies: 19:06 SUMATRIPTAN; cm10 - PMHx: 19:06 Hyperlipidemia; Migraines; Prostate Cancer; cm10 - PSHx: 19:06 Prostate surgery; cm10 - Immunization history:: Adult Immunizations up to date. - Infectious Disease History:: Denies. - Social history:: Smoking status: unknown. Screenin:57 [facility] ED Fall Risk Assessment (Adult) History of falling in the last 3 months, jb4 including since admission No falls in past 3 months (0 pts) Confusion or Disorientation No (0 pts) Intoxicated or Sedated No (0 pts) Impaired Gait No (0 pts) Mobility Assist Device Used No (0 pt) Altered Elimination No (0 pt) Score/Fall Risk Level 0 - 2 = Low Risk Oriented to surroundings, Maintained a safe environment. Abuse screen: Denies threats or abuse. Nutritional screening: No deficits noted. Tuberculosis screening: No symptoms or risk factors identified. Assessment: 21:38 Reassessment: Patient appears in no apparent distress at this time. Patient and/or jb4 family updated on plan of care and expected duration. Pain level reassessed. Patient is alert, oriented x 3, equal unlabored respirations, skin warm/dry/pink. 21:57 Reassessment: Patient appears in no apparent distress at this time. Patient and/or jb4 family updated on plan of care and expected duration. Pain level reassessed. Patient is alert, oriented x 3, equal unlabored respirations, skin warm/dry/pink. Patient states feeling better. Patient states symptoms have improved. Vital Signs: 19:04 BP 108 / 82; Pulse 69; Resp 18; Temp 97.7(TE); Pulse Ox 100% ; Weight 76.2 kg; Height 5 cm10 ft. 8 in. ; Pain 7/10; 21:38 BP 112 / 79; Pulse 64; Resp 16; Pulse Ox 100% on R/A; jb4 19:04 Body Mass Index 25.54 (76.20 kg, 172.72 cm) cm10 19:04 Pain Scale: Adult cm10 ED Course: 18:35 Patient arrived in ED. ra3 18:47 [place] [facility] kb 18:47 Sweetie Mckeon is Attending Physician. kb 19:06 Triage completed. cm10 19:06 Arm band placed on right wrist. Patient placed in waiting room. cm10 19:57 Missed attempt(s): 20 gauge in left antecubital area. 22 gauge. vk 20:55 Inserted saline lock: 22 gauge in right antecubital area, using aseptic technique. vk Blood collected. Flushed with 10 mL NS. 21:38 Corona Mallory, BENJI is Primary Nurse. jb4 21:57 Patient has correct armband on for positive identification. Bed in low position. Call jb4 light in reach. Side rails up X 1. Provided Education on: discharge instructions.. 21:57 No provider procedures requiring assistance completed. IV discontinued, intact, jb4 bleeding controlled, No redness/swelling at site. Pressure dressing applied. Administered Medications: 21:24 Drug: NS 0.9% IV 1000 ml IV at 1000 ml once; to be given as a bolus over 60 minutes jb4 Route: IV; Rate: 1000 ml; Site: right antecubital; 22:00 Follow up: Response: No adverse reaction; IV Status: Order to discontinue infusion; jb4 Order to discontinue infusion, pt does not to wish to finish IV infusion.; IV Intake: 500ml 21:24 Drug: metoCLOPramide IVP 10 mg IVP once; over 1 to 2 minutes Route: IVP; Site: right jb4 antecubital; :59 Follow up: Response: No adverse reaction; Marked relief of symptoms jb4 21:24 Drug: Ketorolac IVP 15 mg IVP once Route: IVP; Site: right antecubital; jb4 :59 Follow up: Response: No adverse reaction; Marked relief of symptoms jb4 21:24 Drug: diphenhydrAMINE IVP 12.5 mg IVP once Route: IVP; Site: right antecubital; jb4 :59 Follow up: Response: No adverse reaction; Marked relief of symptoms jb4 21:24 Drug: Decadron - Dexamethasone IVP 10 mg IVP once Route: IVP; Site: right antecubital; jb4 :59 Follow up: Response: No adverse reaction; Marked relief of symptoms jb4 Intake: 22:00 IV: 500ml; Total: 500ml. jb4 Outcome: 21:47 Discharge ordered by . kb 21:57 Discharged to home ambulatory, jb4 21:57 Condition: stable 21:57 Discharge instructions given to patient, Instructed on discharge instructions, follow up and referral plans. Demonstrated understanding of instructions, follow-up care, 22:00 Patient left the ED. jb4 Signatures: Argentina Gu, PREETHI NASH-Corona Quick RN RN jb4 Sandra Robles RN RN cm10 [place] vk
[2024-09-28 22:49] VITALS: TEMP 97.7; O2SAT 100
[2024-09-28 22:50] VITALS: BP 112/79
== END 2024-09-28 22:00 | disposition home or self-care (01) ==
LOC: ER 18:29
DX: G43.009 Migraine without aura, not intractable, without status migrainosus (principal)
CPT/HCPCS: J2765; J1200; J1100; J7030; 96361; 96374; 96375; 99284